=== PATIENT | male | born 1960 | race Caucasian/White ===

== ENCOUNTER 2025-08-30 12:13 | Outpatient (REF) | payer BC, SELFPAY ==
--- NOTE | ~2025-08-30 | US_ITS ---
Procedure: Endovascular ablation of the right greater saphenous vein with VenaSeal and STS HISTORY: Varicose veins INDICATIONS: Symptomatically varicose veins bilateral lower extremity. Symptoms include pain, swelling, and ulceration PROCEDURE/FINDINGS: Informed consent was obtained following a discussion of the risks and benefits of the procedure with the patient. The patient was placed supine on the ultrasound procedure table. Preliminary ultrasound demonstrates dilated refluxing right greater saphenous vein. A site was marked on the right medial leg . The right leg was sterilely prepped and draped. Following the administration of 1% lidocaine for local anesthesia, the greater saphenous vein was accessed with a 21-gauge micropuncture needle under direct ultrasound guidance. The needle was exchanged for the transitional dilator over a 0.018 guidewire. A 0.035 guidewire was then advanced to the saphenofemoral junction. The VenaSeal sheath was then inserted over the wire and positioned 10 cm from the saphenofemoral junction. VenaSeal glue was then delivered along the length of the greater saphenous vein while retracting the catheter with compression at the saphenofemoral junction to prevent glue from traveling forward. The delivery device was removed and hemostasis was achieved with manual compression. Next, under ultrasound guidance with permanent recordings with direct visualization into the vein lumen, the right greater saphenous vein was accessed utilizing a 23-gauge butterfly needle. The Tessari method was performed with a 4:1 ratio of air to STS to create foam. The solution was then administered through the access, a total of 8 mL of foam was used. The access was removed and hemostasis was immediately achieved. Postprocedure ultrasound demonstrates successful occlusion of the treated veins with widely patent and compressible saphenofemoral junction. Patient tolerated the procedure well without immediate complication. US/US Vein Inj Sclerosant Single IMPRESSION: Successful VenaSeal and STS ablation of the right greater saphenous vein. Follow-up ultrasound in 5-7 days The procedure was performed by Bryan Ascencio NP and supervised by Lambert Carbajal M.D. Electronically signed by: Lambert Carbajal MD 09/07/2025 05:52 PM EDT Workstation: [id number]
[2025-08-30] MEDS: Lidocaine HCl 1 % MPF 5 ML VIAL SUBCUT (15:14)
[2025-08-30] MEDS: Sodium Tetradecyl Sulfate 1% 2 ML VIAL INTRAVARIC (15:21)
== END 2025-08-30 12:14 | disposition home or self-care (01) ==
LOC: HO.US 12:13
PROVIDERS: PCP Family Medicine; Visit Provider Student in an Organized Health Care Education/Training Program
DX: I87.2 Venous insufficiency (chronic) (peripheral) (principal); I83.813 Varicose veins of bilateral lower extremities with pain
CPT/HCPCS: 36470; 36482; C1894; J2003

== ENCOUNTER → 2025-08-30 12:16 | Outpatient (BNV) | payer BC, SELFPAY | PROVIDERS: PCP Family Medicine | DX: I83.11 Varicose veins of right lower extremity with inflammation (principal) | CPT/HCPCS: 36470 ==

== ENCOUNTER 2025-09-06 12:37 | Outpatient (REF) | payer BC, SELFPAY ==
--- NOTE | ~2025-09-06 | US_ITS ---
Procedure: Endovascular ablation of the right small saphenous vein with VenaSeal HISTORY: Varicose veins INDICATIONS: Symptomatic varicose veins bilateral lower extremity. Symptoms include swelling and lower leg ulceration PROCEDURE/FINDINGS: Informed consent was obtained following a discussion of the risks and benefits of the procedure with the patient. The patient was placed prone on the ultrasound procedure table. Preliminary ultrasound demonstrates dilated refluxing right small saphenous vein. A site was marked on the right medial leg . The right leg was sterilely prepped and draped. Following the administration of 1% lidocaine for local anesthesia, the small saphenous vein was accessed with a 21-gauge micropuncture needle under direct ultrasound guidance. The needle was exchanged for the transitional dilator over a 0.018 guidewire. A 0.035 guidewire was then advanced to the saphenofemoral junction. The VenaSeal sheath was then inserted over the wire and positioned 10 cm from the saphenofemoral junction. VenaSeal glue was then delivered along the length of the vein while retracting the catheter with compression at the saphenofemoral junction to prevent glue from traveling forward. The delivery device was removed and hemostasis was achieved with manual compression. Postprocedure ultrasound demonstrates successful occlusion of the treated veins with widely patent and compressible saphenofemoral junction. Patient tolerated the procedure well without immediate complication. US/US venaseal vein closure IMPRESSION: Successful VenaSeal ablation of the right small saphenous vein. Follow-up ultrasound in 5-7 days The procedure was performed by Bryan Ascencio NP and supervised by Lambert Carbajal M.D. Electronically signed by: Lambert Carbajal MD 10/06/2025 11:52 AM [facility] Workstation: [id number]
--- NOTE | ~2025-09-06 | US_ITS ---
EXAMINATION: US TRIPLEX LOWER EXTREMITY, RIGHT CLINICAL INFORMATION: post VenaSeal COMPARISON: None available. TECHNIQUE: Color-flow triplex imaging with spectral analysis and compression Doppler were performed on the right lower extremity. FINDINGS: Respiratory variation, normal compression and augmented flow are noted throughout the right lower extremity. The visualized common femoral vein, superficial femoral vein, profunda femoral vein, popliteal vein and midcalf peroneal and posterior tibial venous segments show no evidence of deep venous thrombosis. Greater saphenous vein is patent at the saphenofemoral Junction for a length of 2.9 cm. Image showing the vessel is partially compressible was obtained. US/US venous duplex LE RT IMPRESSION: Great saphenous vein is occluded 2.9 cm from the saphenofemoral Junction. No evidence of deep venous thrombosis involving the right lower extremity. Electronically signed by: Dami Barrera MD 09/06/2025 01:31 PM EDT
== END 2025-09-06 12:38 | disposition home or self-care (01) ==
LOC: HO.US 12:37
PROVIDERS: PCP Family Medicine; Visit Provider Student in an Organized Health Care Education/Training Program
DX: I87.2 Venous insufficiency (chronic) (peripheral) (principal); I82.811 Embolism and thrombosis of superficial veins of right lower extremity; I83.018 Varicose veins of right lower extremity with ulcer other part of lower leg; L97.819 Non-pressure chronic ulcer of other part of right lower leg with unspecified severity; I83.891 Varicose veins of right lower extremity with other complications
CPT/HCPCS: 36482; 93971; C1894

== ENCOUNTER → 2025-09-06 12:55 | Outpatient (BNV) | payer BC, SELFPAY | PROVIDERS: PCP Family Medicine; Visit Provider Radiology Diagnostic Radiology | DX: I80.01 Phlebitis and thrombophlebitis of superficial vessels of right lower extremity (principal) | CPT/HCPCS: 93971 ==

== ENCOUNTER 2025-09-12 12:32 | Outpatient (REF) | payer BC, SELFPAY ==
--- NOTE | ~2025-09-12 | US_ITS ---
EXAMINATION: US TRIPLEX LOWER EXTREMITY, RIGHT CLINICAL INFORMATION: post SSV VenaSeal 09/06/25 and GSV 08/30/25 COMPARISON: None available. TECHNIQUE: Color-flow triplex imaging with spectral analysis and compression Doppler were performed on the right lower extremity. FINDINGS: There is central linear echogenic material within the popliteal vein. Color Doppler demonstrates blood flow around the filling defect. Respiratory variation, normal compression and augmented flow are noted throughout the right lower extremity. The visualized common femoral vein, superficial femoral vein, profunda femoral vein, and midcalf peroneal and posterior tibial venous segments show no evidence of deep venous thrombosis. Small saphenous vein is obscured distally by bandages. The proximal and midsection demonstrates a vessel with increased echogenicity and limited compressibility. Great saphenous vein is demonstrated near the saphenofemoral Junction with flow on color Doppler. There is also shown in the proximal thigh where it has an irregular undulating contour and contains hypoechoic material. US/US venous duplex LE RT IMPRESSION: Nonocclusive deep venous thrombosis is present in the popliteal vein. The US Tech notified the [employer]YM[employer] COACH who was present at the time. Small and great saphenous veins post VenaSeal. GSV flow demonstrated near the SFJ. Those 2 vessels were occluded otherwise. Electronically signed by: Dami Barrera MD 09/12/2025 03:02 PM EDT
== END 2025-09-12 12:33 | disposition home or self-care (01) ==
LOC: HO.US 12:32
PROVIDERS: PCP Family Medicine; Visit Provider Student in an Organized Health Care Education/Training Program
DX: I87.2 Venous insufficiency (chronic) (peripheral) (principal)
CPT/HCPCS: 93971

== ENCOUNTER → 2025-09-12 12:53 | Outpatient (BNV) | payer BC, SELFPAY | PROVIDERS: PCP Family Medicine; Visit Provider Radiology Diagnostic Radiology | DX: I82.431 Acute embolism and thrombosis of right popliteal vein (principal) | CPT/HCPCS: 93971 ==

== ENCOUNTER 2025-09-19 14:57 | Outpatient (REF) | payer BC, SELFPAY ==
--- NOTE | 2025-09-12 13:28 | PM.EVENT ---
Documented by User: Bryan Ascencio NP 09/12/25 13:34 Event Note Date of Service: 09/12/25 Event Note: Pt present for a right PASV ablation in the setting of right LE venous stasis ulceration. Pt also had f/u U/S to right SSV ablation with Venaseal performed a couple weeks ago. Pt found to have acute non occlusive DVT in the popliteal vein. Denies cardiorespiratory symptoms. No RLE complaints. 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 Physical exam: No additional swelling. Non-tender. No erythema, just previously noted staining. Plan: Continue anticoagulation. Seek medical attn for cardiorespiratory symptoms. F/U U/S in 10 days for DVT resolution. Told U/S tech to communicate findings with provider. Time Spent With Patient Time: Total time managing care of this patient today _20 minutes. Documented by User: Lambert Carbajal MD 09/12/25 15:12 Event Note Date of Service: 09/12/25
--- NOTE | ~2025-09-19 | US_ITS ---
EXAMINATION: US TRIPLEX LOWER EXTREMITY, RIGHT CLINICAL INFORMATION: History of right greater saphenous vein venaseal and sclerotherapy and right lesser saphenous vein venaseal procedure COMPARISON: Previous exams most recent September 12, 2025 TECHNIQUE: Color-flow triplex imaging with spectral analysis and compression Doppler were performed on the right lower extremity. FINDINGS: The visualized common femoral vein, superficial femoral vein, profunda femoral vein and saphenofemoral junction appear patent. There is echogenic material against the wall of the popliteal vein, partial recanalization and decreased compression similar to prior exam suggestive of chronic changes from DVT. No evidence of new or acute DVT. Calf veins are not visualized. There is no Mendoza's cyst. US/US venous duplex LE RT IMPRESSION: Chronic changes from DVT in the right popliteal vein similar to September 12, 2025 exam. No evidence of new or acute DVT. Electronically signed by: Swapna Rosales MD 09/19/2025 04:17 PM EDT
--- OUTSIDE RECORDS SUMMARY | 2025-09-19 20:07 | XMS_ITS | Data Portability ---
Author Organization [facility] Address [address] [place] [id number] Assessment No assessment recorded. Plan of Treatment Reminders Order Date Submit Date Provider Last Modified By Organization Details Last Modified Time Details Appointments [facility]NU[facility] 2025 11:00A Rowan Feliciano MD Not available Not available Not available Lab None recorded. Referral None recorded. Procedures None recorded. Surgeries None recorded. Imaging None recorded. Medication Orders None recorded. Patient TargetsNo targets recorded. Patient InstructionsNo instructions recorded. Reason for Referral None Reported. Results Created Date Observation Date Name Description Value Unit Range Abnormal Flag Note LastModifiedBy Organization Detail LastModifiedTime 02/06/20 24 02/06/2024 PROTH ROMBI N TIME INR prothrombin time 15.5 sec 9.5-12 .1 high Not Available [address] [place] [address], [address], 02/06/2024 12:54:31 02/06/20 24 02/06/2024 PROTH ROMBI N TIME INR INR 1.5 The INR is repor ela with all PT's, but it is to be used only with patie nts on couma din thera py for at least two weeks . Recom cruz d INR Value s: 2.0-3 .0 Prev or Rx DVT, AFIB, Strok e or Tissu e Valve 3.0-4 .5 M.I. Recur and decre ased morta l 2.5-3 .5 Mecha nical Valve . Not Available [address] [place] [address], [address], 02/06/2024 12:54:31 02/13/20 24 02/13/2024 PROTH ROMBI N TIME INR prothrombin time 19.7 sec 9.5-12 .1 high Not Available [address] [place] [address], [id number], 02/13/2024 12:54:18 02/13/20 24 02/13/2024 PROTH ROMBI N TIME INR INR 2.0 The INR is repor ela with all PT's, but it is to be used only with patie nts on couma din thera py for at least two weeks . Recom cruz d INR Value s: 2.0-3 .0 Prev or Rx DVT, AFIB, Strok e or Tissu e Valve 3.0-4 .5 M.I. Recur and decre ased morta l 2.5-3 .5 Mecha nical Valve . Not Available [address] [place] [address], [address], 02/13/2024 12:54:18 07/14/20 24 07/15/2024 WOUND CULTU RE wound culture CULT Commen ts Not Available [address] [place] [address], 96469, 07/15/2024 13:33:14 07/14/20 24 07/15/2024 WOUND CULTU RE wound culture 5 Young Growth , Reincu bated Not Available [address] [place] [address], 56914, 07/15/2024 13:33:14 07/14/20 24 07/15/2024 WOUND CULTU RE O:aersp Aeromo kinza specie s Not Available [address] [place] [address], 37329, 07/15/2024 13:33:14 07/14/20 24 07/15/2024 WOUND CULTU RE wound culture Isolat e Commen t: Not Available [address] [place] [address], 19306, 07/15/2024 13:33:14 07/14/20 24 07/15/2024 WOUND CULTU RE wound culture AEROMO KINZA HYDROP FLORA CAVIAE COMPLE X Not Available [address] [place] [address], 38778, 07/15/2024 13:33:14 07/14/20 24 07/15/2024 WOUND CULTU RE wound culture Isolat e Commen t: Not Available [address] [place] [address], 27119, 07/15/2024 13:33:14 07/14/20 24 07/15/2024 WOUND CULTU RE wound culture Identi fied by MALDI- TOF Not Available [address] [place] [address], 25114, 07/15/2024 13:33:14 07/14/20 24 07/15/2024 WOUND CULTU RE wound culture Quanti ty abnormal Not Available [address] [place] [address], 81427, 07/15/2024 13:33:14 07/14/20 24 07/15/2024 WOUND CULTU RE wound culture 2+ abnormal Not Available [address] [place] [address], 66229, 07/15/2024 13:33:14 07/14/20 24 07/15/2024 GRAM STAIN gram stain GS Gram Stain Result abnormal Not Available [address] [place] [address], 21415, 07/15/2024 13:43:58 07/14/20 24 07/15/2024 GRAM STAIN gram stain ` No Polymo rphonu clear Cells Not Available [address] [place] [address], 11806, 07/15/2024 13:43:58 07/14/20 24 07/15/2024 GRAM STAIN gram stain 2 A 2+ (Few) Gram Positi ve Cocci abnormal Not Available [address] [place] [address], 98148, 07/15/2024 13:43:58 07/14/20 24 07/15/2024 WOUND CULTU RE wound culture CULT Commen ts Not Available [address] [place] [address], 80116, 07/15/2024 13:43:58 07/14/20 24 07/15/2024 WOUND CULTU RE wound culture 5 Young Growth , Reincu bated Not Available [address] [place] [address], 15614, 07/15/2024 13:43:58 07/14/20 24 07/15/2024 WOUND CULTU RE O:aersp Aeromo kinza specie s Not Available [address] [place] [address], 27322, 07/15/2024 13:43:58 07/14/20 24 07/15/2024 WOUND CULTU RE wound culture Isolat e Commen t: Not Available [address] [place] [address], 11110, 07/15/2024 13:43:58 07/14/20 24 07/15/2024 WOUND CULTU RE wound culture AEROMO KINZA HYDROP FLORA CAVIAE COMPLE X Not Available [address] [place] [address], 43829, 07/15/2024 13:43:58 07/14/20 24 07/15/2024 WOUND CULTU RE wound culture Isolat e Commen t: Not Available [address] [place] [address], 17747, 07/15/2024 13:43:58 07/14/20 24 07/15/2024 WOUND CULTU RE wound culture Identi fied by MALDI- TOF Not Available [address] [place] [address], 85927, 07/15/2024 13:43:58 07/14/20 24 07/15/2024 WOUND CULTU RE wound culture Quanti ty abnormal Not Available [address] [place] [address], 28743, 07/15/2024 13:43:58 07/14/20 24 07/15/2024 WOUND CULTU RE wound culture 2+ abnormal Not Available [address] [place] [address], 19182, 07/15/2024 13:43:58 07/14/20 24 07/15/2024 GRAM STAIN gram stain GS Gram Stain Result abnormal Not Available [address] [place] [address], 06471, 07/16/2024 08:37:20 07/14/20 24 07/15/2024 GRAM STAIN gram stain ` No Polymo rphonu clear Cells Not Available [address] [place] [address], 16489, 07/16/2024 08:37:20 07/14/20 24 07/15/2024 GRAM STAIN gram stain 2 A 2+ (Few) Gram Positi ve Cocci abnormal Not Available [address] [place] [address], 03194, 07/16/2024 08:37:20 07/14/20 24 07/16/2024 WOUND CULTU RE wound culture CULT Commen ts Not Available [address] [place] [address], 85899, 07/16/2024 08:37:21 07/14/20 24 07/16/2024 WOUND CULTU RE wound culture 5 Young Growth , Reincu bated Not Available [address] [place] [address], 78331, 07/16/2024 08:37:21 07/14/20 24 07/16/2024 WOUND CULTU RE O:aersp Aeromo kinza specie s Not Available [address] [place] [address], 41431, 07/16/2024 08:37:21 07/14/20 24 07/16/2024 WOUND CULTU RE wound culture Isolat e Commen t: Not Available [address] [place] [address], 04301, 07/16/2024 08:37:21 07/14/20 24 07/16/2024 WOUND CULTU RE wound culture AEROMO KINZA HYDROP FLORA CAVIAE COMPLE X Not Available [address] [place] [address], 08093, 07/16/2024 08:37:21 07/14/20 24 07/16/2024 WOUND CULTU RE wound culture Isolat e Commen t: Not Available [address] [place] [address], 73316, 07/16/2024 08:37:21 07/14/20 24 07/16/2024 WOUND CULTU RE wound culture Identi fied by MALDI- TOF Not Available [address] [place] [address], 02983, 07/16/2024 08:37:21 07/14/20 24 07/16/2024 WOUND CULTU RE wound culture Quanti ty abnormal Not Available [address] [place] [address], 23274, 07/16/2024 08:37:21 07/14/20 24 07/16/2024 WOUND CULTU RE wound culture 2+ abnormal Not Available [address] [facility] [address] [place] [address], 275[address], 07/16/2024 08:37:21 07/14/20 24 07/16/2024 MICRO SCAN NEGAT MEG DRUG PANEL amikacin <=16 susceptib le Not Available [address] [place] [address], 58339, 07/16/2024 08:37:22 07/14/20 24 07/16/2024 MICRO SCAN NEGAT MEG DRUG PANEL amoxicillin/ clavulanate 16/8 intermedi ate Not Available [address] [place] [address], 97955, 07/16/2024 08:37:22 07/14/20 24 07/16/2024 MICRO SCAN NEGAT MEG DRUG PANEL ampicillin/s ulbactam >16/8 resistant Not Available [address] [facility] [address] [place] [address], 31149, 07/16/2024 08:37:22 07/14/20 24 07/16/2024 MICRO SCAN NEGAT MEG DRUG PANEL cefazolin 16 intermedi ate Not Available [address] [place] [address], 80802, 07/16/2024 08:37:22 07/14/20 24 07/16/2024 MICRO SCAN NEGAT MEG DRUG PANEL cefepime <=2 susceptib le Not Available [address] [place] [address], 99135, 07/16/2024 08:37:22 07/14/20 24 07/16/2024 MICRO SCAN NEGAT MEG DRUG PANEL cefotaxime <=2 susceptib le Not Available [address] [place] [address], 73794, 07/16/2024 08:37:22 07/14/20 24 07/16/2024 MICRO SCAN NEGAT MEG DRUG PANEL ceftazidime <=1 susceptib le Not Available [address] [place] [address], 26194, 07/16/2024 08:37:22 07/14/20 24 07/16/2024 MICRO SCAN NEGAT MEG DRUG PANEL ceftriaxone <=1 susceptib le Not Available [address] [place] [address], 55250, 07/16/2024 08:37:22 07/14/20 24 07/16/2024 MICRO SCAN NEGAT MEG DRUG PANEL ciprofloxaci n <=0.25 susceptib le Not Available [address] [place] [address], 30935, 07/16/2024 08:37:22 07/14/20 24 07/16/2024 MICRO SCAN NEGAT MEG DRUG PANEL gentamicin <=2 susceptib le Not Available [address] [place] [address], 38270, 07/16/2024 08:37:22 07/14/20 24 07/16/2024 MICRO SCAN NEGAT MEG DRUG PANEL tetracycline <=4 susceptib le Not Available [address] [place] [address], 06696, 07/16/2024 08:37:22 07/14/20 24 07/16/2024 MICRO SCAN NEGAT MEG DRUG PANEL trimethoprim /sulfamethox azole <=0.5/ 9.5 susceptib le Not Available [address] [place] [address], 72482, 07/16/2024 08:37:22 07/14/20 24 07/16/2024 MICRO SCAN NEGAT MEG DRUG PANEL piperacillin /tazobactam <=8 susceptib le Not Available [address] [place] [address], 35532, 07/16/2024 08:37:22 07/14/20 24 07/15/2024 GRAM STAIN gram stain GS Gram Stain Result abnormal Not Available [address] [place] [address], 37737, 07/16/2024 09:30:22 07/14/20 24 07/15/2024 GRAM STAIN gram stain ` No Polymo rphonu clear Cells Not Available [address] [place] [address], 49103, 07/16/2024 09:30:22 07/14/20 24 07/15/2024 GRAM STAIN gram stain 2 A 2+ (Few) Gram Positi ve Cocci abnormal Not Available [address] [place] [address], 69731, 07/16/2024 09:30:22 07/14/20 24 07/16/2024 WOUND CULTU RE wound culture CULT Commen ts Not Available [address] [place] [address], 14668, 07/16/2024 09:30:23 07/14/20 24 07/16/2024 WOUND CULTU RE wound culture 5 Young Growth , Reincu bated Not Available [address] [place] [address], 83673, 07/16/2024 09:30:23 07/14/20 24 07/16/2024 WOUND CULTU RE O:aersp Aeromo kinza specie s Not Available [address] [place] [address], 83645, 07/16/2024 09:30:23 07/14/20 24 07/16/2024 WOUND CULTU RE wound culture Isolat e Commen t: Not Available [address] [place] [address], 37575, 07/16/2024 09:30:23 07/14/20 24 07/16/2024 WOUND CULTU RE wound culture AEROMO KINZA HYDROP FLORA CAVIAE COMPLE X Not Available [address] [place] [address], 74003, 07/16/2024 09:30:23 07/14/20 24 07/16/2024 WOUND CULTU RE wound culture Isolat e Commen t: Not Available [address] [place] [address], 65690, 07/16/2024 09:30:23 07/14/20 24 07/16/2024 WOUND CULTU RE wound culture Identi fied by MALDI- TOF Not Available [address] [place] [address], 57323, 07/16/2024 09:30:23 07/14/20 24 07/16/2024 WOUND CULTU RE wound culture Quanti ty abnormal Not Available [address] [place] [address], 74311, 07/16/2024 09:30:23 07/14/20 24 07/16/2024 WOUND CULTU RE wound culture 2+ abnormal Not Available [address] [place] [address], 46277, 07/16/2024 09:30:23 07/14/20 24 07/16/2024 MICRO SCAN NEGAT MEG DRUG PANEL amikacin <=16 susceptib le Not Available [address] [place] [address], 79988, 07/16/2024 09:30:23 07/14/20 24 07/16/2024 MICRO SCAN NEGAT MEG DRUG PANEL amoxicillin/ clavulanate 16/8 intermedi ate Not Available [address] [place] [address], 89296, 07/16/2024 09:30:23 07/14/20 24 07/16/2024 MICRO SCAN NEGAT MEG DRUG PANEL ampicillin/s ulbactam >16/8 resistant Not Available [address], [address], 07/16/2024 09:30:23 07/14/20 24 07/16/2024 MICRO SCAN NEGAT MEG DRUG PANEL cefazolin 16 intermedi ate Not Available [address] [place] [address], 80595, 07/16/2024 09:30:23 07/14/20 24 07/16/2024 MICRO SCAN NEGAT MEG DRUG PANEL cefepime <=2 susceptib le Not Available [address] [place] [address], 53697, 07/16/2024 09:30:23 07/14/20 24 07/16/2024 MICRO SCAN NEGAT MEG DRUG PANEL cefotaxime <=2 susceptib le Not Available [address] [place] [address], 36814, 07/16/2024 09:30:23 07/14/20 24 07/16/2024 MICRO SCAN NEGAT MEG DRUG PANEL ceftazidime <=1 susceptib le Not Available [address] [place] [address], 04094, 07/16/2024 09:30:23 07/14/20 24 07/16/2024 MICRO SCAN NEGAT MEG DRUG PANEL ceftriaxone <=1 susceptib le Not Available [address] [place] [address], 82144, 07/16/2024 09:30:23 07/14/20 24 07/16/2024 MICRO SCAN NEGAT MEG DRUG PANEL ciprofloxaci n <=0.25 susceptib le Not Available [address] [place] [address], 96053, 07/16/2024 09:30:23 07/14/20 24 07/16/2024 MICRO SCAN NEGAT MEG DRUG PANEL gentamicin <=2 susceptib le Not Available [address] [place] [address], 31150, 07/16/2024 09:30:23 07/14/20 24 07/16/2024 MICRO SCAN NEGAT MEG DRUG PANEL tetracycline <=4 susceptib le Not Available [address] [place] [address], 91386, 07/16/2024 09:30:23 07/14/20 24 07/16/2024 MICRO SCAN NEGAT MEG DRUG PANEL trimethoprim /sulfamethox azole <=0.5/ 9.5 susceptib le Not Available [address] [place] [address], 69057, 07/16/2024 09:30:23 07/14/20 24 07/16/2024 MICRO SCAN NEGAT MEG DRUG PANEL piperacillin /tazobactam <=8 susceptib le Not Available [address] [place] [address], 90309, 07/16/2024 09:30:23 07/14/20 24 07/15/2024 GRAM STAIN gram stain GS Gram Stain Result abnormal Not Available [address] [place] [address], 25071, 07/16/2024 14:43:57 07/14/20 24 07/15/2024 GRAM STAIN gram stain ` No Polymo rphonu clear Cells Not Available [address] [place] [address], 32780, 07/16/2024 14:43:57 07/14/20 24 07/15/2024 GRAM STAIN gram stain 2 A 2+ (Few) Gram Positi ve Cocci abnormal Not Available [address] [place] [address], 24587, 07/16/2024 14:43:57 07/14/20 24 07/16/2024 WOUND CULTU RE O:aersp Aeromo kinza specie s Not Available [address] [place] [address], 52556, 07/16/2024 14:43:58 07/14/20 24 07/16/2024 WOUND CULTU RE wound culture Isolat e Commen t: Not Available [address] [place] [address], 47283, 07/16/2024 14:43:58 07/14/20 24 07/16/2024 WOUND CULTU RE wound culture AEROMO KINZA HYDROP FLORA CAVIAE COMPLE X Not Available [address] [place] [address], 16343, 07/16/2024 14:43:58 07/14/20 24 07/16/2024 WOUND CULTU RE wound culture Isolat e Commen t: Not Available [address] [place] [address], 56086, 07/16/2024 14:43:58 07/14/20 24 07/16/2024 WOUND CULTU RE wound culture Identi fied by MALDI- TOF Not Available [address] [place] [address], 35765, 07/16/2024 14:43:58 07/14/20 24 07/16/2024 WOUND CULTU RE wound culture Quanti ty abnormal Not Available [address] [place] [address], 49573, 07/16/2024 14:43:58 07/14/20 24 07/16/2024 WOUND CULTU RE wound culture 2+ abnormal Not Available [address] [place] [address], 50755, 07/16/2024 14:43:58 07/14/20 24 07/16/2024 WOUND CULTU RE O:entfac Entero coccus faecal is Not Available [address] [place] [address], 89176, 07/16/2024 14:43:58 07/14/20 24 07/16/2024 WOUND CULTU RE wound culture Isolat e Commen t: Not Available [address] [place] [address] [address] [place] [address], 90354, 07/16/2024 14:43:58 07/14/2007/16/2024 WOUND CULTU RE wound culture Identi fied by MALDI- TOF Not Available [address] [place] [address], 41173, 07/16/2024 14:43:58 07/14/20 24 07/16/2024 WOUND CULTU RE wound culture Quanti ty abnormal Not Available [address] [place] [address], 83849, 07/16/2024 14:43:58 07/14/2007/16/2024 WOUND CULTU RE wound culture 2+ abnormal Not Available [facility] [address] [place] [address], 18573, 07/16/2024 14:43:58 07/14/20 24 07/16/2024 MICRO SCAN NEGAT MEG DRUG PANEL amikacin <=16 susceptib le Not Available [address] [place] [address], 63734, 07/16/2024 14:43:58 07/14/20 24 07/16/2024 MICRO SCAN NEGAT MEG DRUG PANEL amoxicillin/ clavulanate 16/8 intermedi ate Not Available [address] [place] [address], 08767, 07/16/2024 14:43:58 07/14/20 24 07/16/2024 MICRO SCAN NEGAT MEG DRUG PANEL ampicillin/s ulbactam >16/8 resistant Not Available [facility] [address] [place] [address], 92929, 07/16/2024 14:43:58 07/14/20 24 07/16/2024 MICRO SCAN NEGAT MEG DRUG PANEL cefazolin 16 intermedi ate Not Available [address] [place] [address], 57832, 07/16/2024 14:43:58 07/14/20 24 07/16/2024 MICRO SCAN NEGAT MEG DRUG PANEL cefepime <=2 susceptib le Not Available [address] [place] [address], 86181, 07/16/2024 14:43:58 07/14/20 24 07/16/2024 MICRO SCAN NEGAT MEG DRUG PANEL cefotaxime <=2 susceptib le Not Available [address] [place] [address], 17995, 07/16/2024 14:43:58 07/14/2007/16/2024 MICRO SCAN NEGAT MEG DRUG PANEL ceftazidime <=1 susceptib le Not Available [address] [place] [address], 94635, 07/16/2024 14:43:58 07/14/2007/16/2024 MICRO SCAN NEGAT MEG DRUG PANEL ceftriaxone <=1 susceptib le Not Available [address] [place] [address], 38078, 07/16/2024 14:43:58 07/14/2007/16/2024 MICRO SCAN NEGAT MEG DRUG PANEL ciprofloxaci n <=0.25 susceptib le Not Available [address] [place] [address], 88829, 07/16/2024 14:43:58 07/14/2007/16/2024 MICRO SCAN NEGAT MEG DRUG PANEL gentamicin <=2 susceptib le Not Available [address] [place] [address], 80256, 07/16/2024 14:43:58 07/14/2007/16/2024 MICRO SCAN NEGAT MEG DRUG PANEL tetracycline <=4 susceptib le Not Available [address] [place] [address], 86945, 07/16/2024 14:43:58 07/14/2007/16/2024 MICRO SCAN NEGAT MEG DRUG PANEL trimethoprim /sulfamethox azole <=0.5/ 9.5 susceptib le Not Available [address] [place] [address], 68836, 07/16/2024 14:43:58 07/14/20 24 07/16/2024 MICRO SCAN NEGAT MEG DRUG PANEL piperacillin /tazobactam <=8 susceptib le Not Available [address] [place] [address], 64474, 07/16/2024 14:43:58 07/14/20 24 07/15/2024 GRAM STAIN gram stain GS Gram Stain Result abnormal Not Available [address] [place] [address], 88196, 07/17/2024 11:18:52 07/14/20 24 07/15/2024 GRAM STAIN gram stain ` No Polymo rphonu clear Cells Not Available [address] [place] [address], 32185, 07/17/2024 11:18:52 07/14/20 24 07/15/2024 GRAM STAIN gram stain 2 A 2+ (Few) Gram Positi ve Cocci abnormal Not Available [address] [place] [address], 78732, 07/17/2024 11:18:52 07/14/20 24 07/17/2024 WOUND CULTU RE wound culture CULT Commen ts Not Available [address] [place] [address], 96026, 07/17/2024 11:18:53 07/14/20 24 07/17/2024 WOUND CULTU RE wound culture 5 Young Growth , Reincu bated Not Available [address] [place] [address], 42086, 07/17/2024 11:18:53 07/14/20 24 07/17/2024 WOUND CULTU RE O:aersp Aeromo kinza specie s Not Available [address] [place] [address], 20039, 07/17/2024 11:18:53 07/14/20 24 07/17/2024 WOUND CULTU RE wound culture Isolat e Commen t: Not Available [address] [place] [address], 76351, 07/17/2024 11:18:53 07/14/20 24 07/17/2024 WOUND CULTU RE wound culture AEROMO KINZA HYDROP FLORA CAVIAE COMPLE X Not Available [address] [place] [address], 48814, 07/17/2024 11:18:53 07/14/20 24 07/17/2024 WOUND CULTU RE wound culture Isolat e Commen t: Not Available [address] [place] [address], 99770, 07/17/2024 11:18:53 07/14/20 24 07/17/2024 WOUND CULTU RE wound culture Identi fied by MALDI- TOF Not Available [address] [place] [address], 50446, 07/17/2024 11:18:53 07/14/20 24 07/17/2024 WOUND CULTU RE wound culture Quanti ty abnormal Not Available [address] [place] [address], 55719, 07/17/2024 11:18:53 07/14/20 24 07/17/2024 WOUND CULTU RE wound culture 2+ abnormal Not Available [facility] [address], 138[address], 07/17/2024 11:18:53 07/14/20 24 07/17/2024 WOUND CULTU RE O:entfac Entero coccus faecal is Not Available [address] [place] [address], 75110, 07/17/2024 11:18:53 07/14/20 24 07/17/2024 WOUND CULTU RE wound culture Isolat e Commen t: Not Available [address] [place] [address], 36065, 07/17/2024 11:18:53 07/14/20 24 07/17/2024 WOUND CULTU RE wound culture Identi fied by MALDI- TOF Not Available [address] [place] [address], 88318, 07/17/2024 11:18:53 07/14/20 24 07/17/2024 WOUND CULTU RE wound culture Quanti ty abnormal Not Available [address], 32383, 07/17/2024 11:18:53 07/14/20 24 07/17/2024 WOUND CULTU RE wound culture 2+ abnormal Not Available [address] [facility] [address] [place] [address], 74853, 07/17/2024 11:18:53 07/14/20 24 07/17/2024 MICRO SCAN NEGAT MEG DRUG PANEL amikacin <=16 susceptib le Not Available [address] [place] [address], 23544, 07/17/2024 11:18:53 07/14/20 24 07/17/2024 MICRO SCAN NEGAT MEG DRUG PANEL amoxicillin/ clavulanate 16/8 intermedi ate Not Available [address] [place] [address], 51452, 07/17/2024 11:18:53 07/14/20 24 07/17/2024 MICRO SCAN NEGAT MEG DRUG PANEL ampicillin/s ulbactam >16/8 resistant Not Available [address] [facility] [address] [place] [address], 70076, 07/17/2024 11:18:53 07/14/20 24 07/17/2024 MICRO SCAN NEGAT MEG DRUG PANEL cefazolin 16 intermedi ate Not Available [address] [place] [address], 44136, 07/17/2024 11:18:53 07/14/20 24 07/17/2024 MICRO SCAN NEGAT MEG DRUG PANEL cefepime <=2 susceptib le Not Available [address] [place] [address], 23786, 07/17/2024 11:18:53 07/14/20 24 07/17/2024 MICRO SCAN NEGAT MEG DRUG PANEL cefotaxime <=2 susceptib le Not Available [address] [place] [address], 61161, 07/17/2024 11:18:53 07/14/20 24 07/17/2024 MICRO SCAN NEGAT MEG DRUG PANEL ceftazidime <=1 susceptib le Not Available [address] [place] [address], 87217, 07/17/2024 11:18:53 07/14/20 24 07/17/2024 MICRO SCAN NEGAT MEG DRUG PANEL ceftriaxone <=1 susceptib le Not Available [address] [place] [address], 53727, 07/17/2024 11:18:53 07/14/20 24 07/17/2024 MICRO SCAN NEGAT MEG DRUG PANEL ciprofloxaci n <=0.25 susceptib le Not Available [address] [place] [address], 18751, 07/17/2024 11:18:53 07/14/20 24 07/17/2024 MICRO SCAN NEGAT MEG DRUG PANEL gentamicin <=2 susceptib le Not Available [address] [place] [address], 83308, 07/17/2024 11:18:53 07/14/20 24 07/17/2024 MICRO SCAN NEGAT MEG DRUG PANEL tetracycline <=4 susceptib le Not Available [address] [place] [address], [id number], 07/17/2024 11:18:53 07/14/20 24 07/17/2024 MICRO SCAN NEGAT MEG DRUG PANEL trimethoprim /sulfamethox azole <=0.5/ 9.5 susceptib le Not Available [address] [place] [address], [id number], 07/17/2024 11:18:53 07/14/20 24 07/17/2024 MICRO SCAN NEGAT MEG DRUG PANEL piperacillin /tazobactam <=8 susceptib le Not Available [address] [place] [address], [id number], 07/17/2024 11:18:53 07/14/20 24 07/17/2024 MICRO SCAN POSIT MEG DRUG PANEL ampicillin <=2 susceptib le Not Available [address] [place] [address], [id number], 07/17/2024 11:18:54 07/14/20 24 07/17/2024 MICRO SCAN POSIT MEG DRUG PANEL ciprofloxaci n <=1 susceptib le Not Available [address] [place] [address], [id number], 07/17/2024 11:18:54 07/14/20 24 07/17/2024 MICRO SCAN POSIT MEG DRUG PANEL erythromycin >4 resistant Not Available [address] [place] [address], [id number], 07/17/2024 11:18:54 07/14/20 24 07/17/2024 MICRO SCAN POSIT MEG DRUG PANEL penicillin 2 susceptib le Not Available [address] [place] [address], [id number], 07/17/2024 11:18:54 07/14/20 24 07/17/2024 MICRO SCAN POSIT MEG DRUG PANEL tetracycline >8 resistant Not Available [address] [place] [address], [id number], 07/17/2024 11:18:54 07/14/20 24 07/17/2024 MICRO SCAN POSIT MEG DRUG PANEL vancomycin 1 susceptib le Not Available [address] [place] [address], [id number], 07/17/2024 11:18:54 07/14/20 24 07/15/2024 GRAM STAIN gram stain GS Gram Stain Result abnormal Not Available [address] [place] [address], [id number], 07/17/2024 15:01:04 08/15/07/15/2024 GRAM STAIN gram stain ` No Polymo rphonu clear Cells Not Available [address] [place] [address], [id number], 07/17/2024 15:01:04 07/14/20 24 07/15/2024 GRAM STAIN gram stain 2 A 2+ (Few) Gram Positi ve Cocci abnormal Not Available [address] [place] [address], [id number], 07/17/2024 15:01:04 07/14/20 24 07/17/2024 WOUND CULTU RE O:aersp Aeromo kinza specie s Not Available [address] [place] [address], 07269, 07/17/2024 15:01:04 07/14/20 24 07/17/2024 WOUND CULTU RE wound culture Isolat e Commen t: Not Available [address] [place] [address], [id number], 07/17/2024 15:01:04 07/14/20 24 07/17/2024 WOUND CULTU RE wound culture AEROMO KINZA HYDROP FLORA CAVIAE COMPLE X Not Available [address] [place] [address], 29592, 07/17/2024 15:01:04 07/14/20 24 07/17/2024 WOUND CULTU RE wound culture Isolat e Commen t: Not Available [address] [place] [address], 18018, 07/17/2024 15:01:04 07/14/20 24 07/17/2024 WOUND CULTU RE wound culture Identi fied by MALDI- TOF Not Available [address] [place] [address], 49886, 07/17/2024 15:01:04 07/14/20 24 07/17/2024 WOUND CULTU RE wound culture Quanti ty abnormal Not Available [address] [place] [address], 42739, 07/17/2024 15:01:04 07/14/20 24 07/17/2024 WOUND CULTU RE wound culture 2+ abnormal Not Available [address] [facility] [address] [place] [address], 82757, 07/17/2024 15:01:04 07/14/20 24 07/17/2024 WOUND CULTU RE O:entfac Entero coccus faecal is Not Available [address] [place] [address], 24811, 07/17/2024 15:01:04 07/14/20 24 07/17/2024 WOUND CULTU RE wound culture Isolat e Commen t: Not Available [address] [place] [address], 13925, 07/17/2024 15:01:04 07/14/20 24 07/17/2024 WOUND CULTU RE wound culture Identi fied by MALDI- TOF Not Available [address] [place] [address], 35820, 07/17/2024 15:01:04 07/14/20 24 07/17/2024 WOUND CULTU RE wound culture Quanti ty abnormal Not Available [address] [place] [address], [id number], 07/17/2024 15:01:04 07/14/20 24 07/17/2024 WOUND CULTU RE wound culture 2+ abnormal Not Available [address], 27700, 07/17/2024 15:01:04 07/14/20 24 07/17/2024 WOUND CULTU RE O:dipth Diphth eroids Not Available [address] [place] [address], 92580, 07/17/2024 15:01:04 07/14/20 24 07/17/2024 WOUND CULTU RE wound culture Quanti ty abnormal Not Available [address] [place] [address], 52797, 07/17/2024 15:01:04 07/14/20 24 07/17/2024 WOUND CULTU RE wound culture 1+ abnormal Not Available [address] [facility] [address] [place] [address], 54113, 07/17/2024 15:01:04 07/14/20 24 07/17/2024 MICRO SCAN NEGAT MEG DRUG PANEL amikacin <=16 susceptib le Not Available [address] [place] [address], 61160, 07/17/2024 15:01:05 07/14/20 24 07/17/2024 MICRO SCAN NEGAT MEG DRUG PANEL amoxicillin/ clavulanate 16/8 intermedi ate Not Available [address] [place] [address], 42352, 07/17/2024 15:01:05 07/14/20 24 07/17/2024 MICRO SCAN NEGAT MEG DRUG PANEL ampicillin/s ulbactam >16/8 resistant Not Available [address] [facility] [address] [place] [address], 75557, 07/17/2024 15:01:05 07/14/20 24 07/17/2024 MICRO SCAN NEGAT MEG DRUG PANEL cefazolin 16 intermedi ate Not Available [address] [place] [address], 79935, 07/17/2024 15:01:05 07/14/20 24 07/17/2024 MICRO SCAN NEGAT MEG DRUG PANEL cefepime <=2 susceptib le Not Available [address] [place] [address], 57577, 07/17/2024 15:01:05 07/14/20 24 07/17/2024 MICRO SCAN NEGAT MEG DRUG PANEL cefotaxime <=2 susceptib le Not Available [address] [place] [address], 77210, 07/17/2024 15:01:05 07/14/20 24 07/17/2024 MICRO SCAN NEGAT MEG DRUG PANEL ceftazidime <=1 susceptib le Not Available [address] [place] [address], [id number], 07/17/2024 15:01:05 07/14/20 24 07/17/2024 MICRO SCAN NEGAT MEG DRUG PANEL ceftriaxone <=1 susceptib le Not Available [address] [place] [address], 34823, 07/17/2024 15:01:05 07/14/20 24 07/17/2024 MICRO SCAN NEGAT MEG DRUG PANEL ciprofloxaci n <=0.25 susceptib le Not Available [address] [place] [address], 56723, 07/17/2024 15:01:05 07/14/20 24 07/17/2024 MICRO SCAN NEGAT MEG DRUG PANEL gentamicin <=2 susceptib le Not Available [address] [place] [address], 96297, 07/17/2024 15:01:05 07/14/20 24 07/17/2024 MICRO SCAN NEGAT MEG DRUG PANEL tetracycline <=4 susceptib le Not Available [address] [place] [address], 78973, 07/17/2024 15:01:05 07/14/20 24 07/17/2024 MICRO SCAN NEGAT MEG DRUG PANEL trimethoprim /sulfamethox azole <=0.5/ 9.5 susceptib le Not Available [address] [place] [address], 72910, 07/17/2024 15:01:05 07/14/20 24 07/17/2024 MICRO SCAN NEGAT MEG DRUG PANEL piperacillin /tazobactam <=8 susceptib le Not Available [address] [place] [address], 83744, 07/17/2024 15:01:05 07/14/20 24 07/17/2024 MICRO SCAN POSIT MEG DRUG PANEL ampicillin <=2 susceptib le Not Available [address] [place] [address], 48508, 07/17/2024 15:01:05 07/14/20 24 07/17/2024 MICRO SCAN POSIT MEG DRUG PANEL ciprofloxaci n <=1 susceptib le Not Available [address] [place] [address], 76839, 07/17/2024 15:01:05 07/14/20 24 07/17/2024 MICRO SCAN POSIT MEG DRUG PANEL erythromycin >4 resistant Not Available [address] [place] [address], 21593, 07/17/2024 15:01:05 07/14/20 24 07/17/2024 MICRO SCAN POSIT MEG DRUG PANEL penicillin 2 susceptib le Not Available [address] [place] [address], 05809, 07/17/2024 15:01:05 07/14/20 24 07/17/2024 MICRO SCAN POSIT MEG DRUG PANEL tetracycline >8 resistant Not Available [address] [place] [address], 63666, 07/17/2024 15:01:05 07/14/20 24 07/17/2024 MICRO SCAN POSIT MEG DRUG PANEL vancomycin 1 susceptib le Not Available [address] [place] [address], 95862, 07/17/2024 15:01:05 08/15/20 24 08/15/2024 COMPL ETE BLOOD COUNT W/ DIFF white blood count 9.2 K/mm3 4.0-11 .0 normal Not Available [address] [place] [address], 35325, 08/15/2024 14:50:03 08/15/20 24 08/15/2024 COMPL ETE BLOOD COUNT W/ DIFF red blood count 4.78 M/uL 4.20-5 .80 normal Not Available [address] [place] [address], 83015, 08/15/2024 14:50:03 08/15/20 24 08/15/2024 COMPL ETE BLOOD COUNT W/ DIFF hemoglobin 13.2 gm/dL 12.5-1 7.0 normal Not Available [address] [place] [address], 35076, 08/15/2024 14:50:03 08/15/20 24 08/15/2024 COMPL ETE BLOOD COUNT W/ DIFF hematocrit 43.3 % 37.0-5 0.0 normal Not Available [address] [place] [address], 63881, 08/15/2024 14:50:03 08/15/20 24 08/15/2024 COMPL ETE BLOOD COUNT W/ DIFF mean corpuscular volume 90.6 fL 80.0-1 00.0 normal Not Available [address] [place] [address], 04825, 08/15/2024 14:50:03 08/15/20 24 08/15/2024 COMPL ETE BLOOD COUNT W/ DIFF MCHC 30.5 % 32-37 low Not Available [address] [place] [address], 63292, 08/15/2024 14:50:03 08/15/20 24 08/15/2024 COMPL ETE BLOOD COUNT W/ DIFF red cell distribution width 14.9 % 11.5-1 6.0 normal Not Available [address] [place] [address], 58602, 08/15/2024 14:50:03 08/15/20 24 08/15/2024 COMPL ETE BLOOD COUNT W/ DIFF platelet count 146 K/uL 140-40 0 normal Not Available [address] [place] [address], 68697, 08/15/2024 14:50:03 08/15/20 24 08/15/2024 COMPL ETE BLOOD COUNT W/ DIFF mean platelet volume 11.2 fL 8.6-12 .5 normal Not Available [address] [place] [address], 25032, 08/15/2024 14:50:03 08/15/20 24 08/15/2024 COMPL ETE BLOOD COUNT W/ DIFF %nucleated RBC auto 0.0 % 0.0-0. 7 normal Not Available [address] [facility] [address] [place] [address], 74560, 08/15/2024 14:50:03 08/15/20 24 08/15/2024 COMPL ETE BLOOD COUNT W/ DIFF %neutrophils auto 78.8 % Not Available [address] [facility] [address] [place] [address], 27779, 08/15/2024 14:50:03 08/15/20 24 08/15/2024 COMPL ETE BLOOD COUNT W/ DIFF %lymphocytes auto 11.7 % Not Available [address] [facility] [address] [place] [address], 76625, 08/15/2024 14:50:03 08/15/20 24 08/15/2024 COMPL ETE BLOOD COUNT W/ DIFF %monocytes auto 6.3 % Not Available [address] [facility] [address] [place] [address], 74179, 08/15/2024 14:50:03 08/15/20 24 08/15/2024 COMPL ETE BLOOD COUNT W/ DIFF %eosinophils auto 2.4 % Not Available [address] [facility] [address] [place] [address], 07952, 08/15/2024 14:50:03 08/15/20 24 08/15/2024 COMPL ETE BLOOD COUNT W/ DIFF %basophils auto 0.3 % Not Available [address] [facility] [address] [place] [address], 11352, 08/15/2024 14:50:03 08/15/20 24 08/15/2024 COMPL ETE BLOOD COUNT W/ DIFF %immature granulocytes auto 0.5 % Not Available [address] [facility] [address] [place] [address], 18614, 08/15/2024 14:50:03 08/15/20 24 08/15/2024 COMPL ETE BLOOD COUNT W/ DIFF #neutrophils auto 7.26 K/uL 1.50-7 .50 normal Not Available [address] [place] [address] [facility] [address] [place] [address], 11335, 08/15/2024 14:50:03 08/15/20 24 08/15/2024 COMPL ETE BLOOD COUNT W/ DIFF #lymphocytes auto 1.08 K/uL 1.00-4 .50 normal Not Available [address] [place] [address], 40390, 08/15/2024 14:50:03 08/15/20 24 08/15/2024 COMPL ETE BLOOD COUNT W/ DIFF #monocytes auto 0.58 K/uL 0.00-0 .80 normal Not Available [address] [place] [address], 05444, 08/15/2024 14:50:03 08/15/20 24 08/15/2024 COMPL ETE BLOOD COUNT W/ DIFF #eosinophils auto 0.22 K/uL 0.00-0 .40 normal Not Available [address] [place] [address], 77714, 08/15/2024 14:50:03 08/15/20 24 08/15/2024 COMPL ETE BLOOD COUNT W/ DIFF #basophils auto 0.03 K/uL 0.00-0 .20 normal Not Available [address] [place] [address], 18514, 08/15/2024 14:50:03 08/15/20 24 08/15/2024 COMPL ETE BLOOD COUNT W/ DIFF #immature granulocytes auto 0.05 K/uL 0.00-0 .10 normal Not Available [address] [place] [address], 59418, 08/15/2024 14:50:03 08/15/20 24 08/15/2024 COMPR EHENS MEG METAB OLIC PANEL sodium 140 mEq/L 133-14 5 normal Not Available [address] [place] [address], 53151, 08/15/2024 14:50:05 08/15/20 24 08/15/2024 COMPR EHENS MEG METAB OLIC PANEL potassium 4.7 mEq/L 3.5-5. 1 normal Not Available [address] [place] [address] [facility] [address] [place] [address], 67479, 08/15/2024 14:50:05 08/15/20 24 08/15/2024 COMPR EHENS MEG METAB OLIC PANEL chloride 105 mEq/L 98-112 normal Pleas e note new refer ence range . Not Available [address] [place] [address] [facility] [address] [place] [address], 89158, 08/15/2024 14:50:05 08/15/20 24 08/15/2024 COMPR EHENS MEG METAB OLIC PANEL carbon dioxide 27 mEq/L 22-31 normal Not Available [address] [facility] [address] [place] [address], 94685, 08/15/2024 14:50:05 08/15/20 24 08/15/2024 COMPR EHENS MEG METAB OLIC PANEL anion gap 8 mEq/L 5-15 normal Not Available [address] [place] [address] [facility] [address] [place] [address], 12120, 08/15/2024 14:50:05 08/15/20 24 08/15/2024 COMPR EHENS MEG METAB OLIC PANEL blood urea nitrogen (BUN) 19 mg/dL 8-26 normal Not Available [address] [place] [address] [facility] [address] [place] [address], 10332, 08/15/2024 14:50:05 08/15/20 24 08/15/2024 COMPR EHENS MEG METAB OLIC PANEL creatinine 1.31 mg/dL 0.70-1 .18 high Not Available [address] [place] [address], 93897, 08/15/2024 14:50:05 08/15/20 24 08/15/2024 COMPR EHENS MEG METAB OLIC PANEL est.glomerul ar filtration rate > 60 Units : mL/mi n/1.7 3 m2 Estim ated GFR (eGFR ) cyndi sofia not be used for patie nts with acute kidne y injur y or ESRD (yosi sofia be at stead y state and stabl e to use). eGFR is calcu lated using the Natio nal Kidne y Found ation 2020 CKD-E PI creat inine equat ion, which is now the recom cruz d equat ion to estim ate GFR based on creat inine per priyanka t KDIGO (Kidn ey Disea se Impro ving Globa l Outco mes) Guide lines . KDIGO recom mends CKD now be class ified based on cause , GFR categ ory, and album inuri a categ ory. GFR categ ories will not be repor ela by the lab for G1 or G2 (eGFR >60). GFR categ ories shoul d be assig ruchi as: eGFR 45-59 = G3a (mild ly to moder ately decre ased) , eGFR 30-44 = G3b (mode ratel y to sever ethel decre ased) , eGFR 15-29 G4 (adam rely decre ased) , eGFR< 15 G5 (kidn ey failu re). Not Available [address] [place] [address], 13250, 08/15/2024 14:50:05 08/15/2008/15/2024 COMPR EHENS MEG METAB OLIC PANEL glucose 167 mg/dL 70-100 high Fasti ng Refer ence Inter sam: 70-10 0mg/d L Non-f astin g Refer ence Inter sam: 70-14 0mg/d L Not Available [address] [place] [address], 09008, 08/15/2024 14:50:05 08/15/20 24 08/15/2024 COMPR EHENS MEG METAB OLIC PANEL calcium 8.8 mg/dL 8.4-10 .4 normal Not Available [address] [place] [address], 46980, 08/15/2024 14:50:05 08/15/20 24 08/15/2024 COMPR EHENS MEG METAB OLIC PANEL bilirubin total 0.5 mg/dL 0.2-1. 2 normal Not Available [address] [place] [address], 98150, 08/15/2024 14:50:05 08/15/20 24 08/15/2024 COMPR EHENS MEG METAB OLIC PANEL aspartate amino transferase 13 IU/L 5-34 normal Not Available [address] [place] [address], 37427, 08/15/2024 14:50:05 08/15/20 24 08/15/2024 COMPR EHENS MEG METAB OLIC PANEL alanine aminotransfe rase 12 IU/L 0-55 normal Not Available [address] [place] [address], 77644, 08/15/2024 14:50:05 08/15/20 24 08/15/2024 COMPR EHENS MEG METAB OLIC PANEL total protein 7.4 g/dL 5.8-8. 1 normal Not Available [address] [place] [address], 42330, 08/15/2024 14:50:05 08/15/20 24 08/15/2024 COMPR EHENS MEG METAB OLIC PANEL albumin 3.0 g/dL 2.8-5. 4 normal Not Available [address] [place] [address], 39904, 08/15/2024 14:50:05 08/15/20 24 08/15/2024 COMPR EHENS MEG METAB OLIC PANEL alkaline phosphatase 68 IU/L 40-150 normal Not Available [address] [place] [address], 52832, 08/15/2024 14:50:05 08/15/20 24 08/15/2024 LIPID PANEL triglyceride s 94 mg/dL normal Haydee l <=150 Haydee l 150-1 99 Borde rline High 200-4 99 High >=500 Very High Not Available [address] [place] [address], 58564, 08/15/2024 14:50:06 08/15/20 24 08/15/2024 LIPID PANEL cholesterol 154 mg/dL normal Maureen able <200 Maureen able 200-2 39 Borde rline High >=240 High Not Available [address] [place] [address], 40458, 08/15/2024 14:50:06 08/15/20 24 08/15/2024 LIPID PANEL LDL cholesterol calculated 100 mg/dL normal Near Optim al <100 Optim al 100-1 29 Near optim al 130-1 59 Borde rline High 160-1 89 High >=190 Very High Not Available [address] [place] [address], 91970, 08/15/2024 14:50:06 08/15/20 24 08/15/2024 LIPID PANEL HDL cholesterol 35 mg/dL low <40 Low >=60 Optim al Not Available [address] [place] [address], 50879, 08/15/2024 14:50:06 08/15/20 24 08/21/2024 LUPUS ANTIC OAGUL ANT EVAL W/RFL PTT-la (lupus sensitive) 43 sec <=40 abnormal Not Available [address] [place] [address], 83575, 08/21/2024 12:29:38 08/15/20 24 08/21/2024 LUPUS ANTIC OAGUL ANT EVAL W/RFL hexagonal phase confirmation Weak Positi ve negati ve abnormal Not Available [address] [place] [address], 66507, 08/21/2024 12:29:38 08/15/20 24 08/21/2024 LUPUS ANTIC OAGUL ANT EVAL W/RFL la thrombin clotting time 20 sec 13-19 abnormal THIS TEST WAS PERFO RMED AT: [facility] [address] [place], [place] FLORINDA ISABEL MD,P HD Not Available [address] [place] [address], 73305, 08/21/2024 12:29:38 08/15/20 24 08/21/2024 LUPUS ANTIC OAGUL ANT EVAL W/RFL dilute segun's viper venom 72 sec <=45 abnormal Not Available [address] [place] [address] [place], 9[address]36, 08/21/2024 12:29:38 08/15/2008/21/2024 LUPUS ANTIC OAGUL ANT EVAL W/RFL drvvt confirmation Negati ve negati ve THIS TEST WAS PERFO RMED AT: [facility] [place] [address] [facility] [place], [place] PATRI LACIE ISABEL MD,P HD Not Available [address] [place] [address] [facility] [place] [address], 25965, 08/21/2024 12:29:38 08/15/2008/21/2024 LUPUS ANTIC OAGUL ANT EVAL W/RFL lupus anticoagulan t see note abnormal A Lupus Antic oagul ant is detec ela since one of the two confi rmato ry tests is posit meg. Lupus Anti- coagu lants (LA) may be assoc iated with throm botic event s, recur rent abort ion, or may be asymp tomat ic. A bleed ing histo ry requi res other coagu lopat hies be exclu ded. Since LA may be trans ient, inter natio nal conse nsus guide lines sugge st waiti ng at least 12 weeks befor e retes ting to confi rm antib lionel persi stenc e. (J Throm b Haemo st 2006: 4; 295). NOTE: Direc t oral antic oagul ant thera py may cause false posit meg resul ts. Refer ence Range : Not Detec ela For addit ional infor rossi weaver e refer to http: //jerome shearer.que stdia gnost ics.c om/fa q/FAQ 01v2 (This link is being provi ded for infor ana [place]/ educa eduin l purpo ses only. ) This inter preta tion is based on the follo wing test resul ts. Not Available [address] [place] [address] [facility] [address] [place] [address], [id number], 08/21/2024 12:29:38 09/16/20 24 09/22/2024 LUPUS ANTIC OAGUL ANT EVAL W/RFL PTT-la (lupus sensitive) 31 sec <=40 Not Available [address] [place] [address] [facility] [address] [place] [address], 57422, 09/22/2024 23:44:29 09/16/20 24 09/22/2024 LUPUS ANTIC OAGUL ANT EVAL W/RFL dilute segun's viper venom 45 sec <=45 THIS TEST WAS PERFO RMED AT: [facility] [id number] [place] [address] PATRI LACIE ISABEL MD,P HD Not Available [address] [place] [address] [facility] [address] [place] [address], 52339, 09/22/2024 23:44:29 09/16/2009/22/2024 LUPUS ANTIC OAGUL ANT EVAL W/RFL lupus anticoagulan t see note A Lupus Antic oagul ant is not detec ela. Refer ence Range : Not Detec ela For addit ional infor rossi weaver e refer to http: //jerome duggan stdia gnost ics.c om/fa q/FAQ 01v2 (This link is being provi ded for infor ana [place]/ educsusana denny l purpo ses only. ) This inter preta tion is based on the follo wing test resul ts. Not Available [address] [place] [address] [facility] [address] [place] [address], 41113, 09/22/2024 23:44:29 11/18/20 24 11/18/2024 COMPR EHENS MEG METAB OLIC PANEL sodium 140 mEq/L 133-14 5 normal Not Available [address] [place] [address] [facility] [address] [place] [address], 49232, 11/18/2024 14:14:07 11/18/20 24 11/18/2024 COMPR EHENS MEG METAB OLIC PANEL potassium 4.4 mEq/L 3.5-5. 1 normal Not Available [address] [place] [address] [facility] [address] [place] [address], 27330, 11/18/2024 14:14:07 11/18/20 24 11/18/2024 COMPR EHENS MEG METAB OLIC PANEL chloride 105 mEq/L 98-112 normal Not Available [address] [place] [address] [facility] [address] [place] [address], 20526, 11/18/2024 14:14:07 11/18/20 24 11/18/2024 COMPR EHENS MEG METAB OLIC PANEL carbon dioxide 26 mEq/L 22-31 normal Not Available [facility] [address] [place] [address], 80275, 11/18/2024 14:14:07 11/18/20 24 11/18/2024 COMPR EHENS MEG METAB OLIC PANEL anion gap 9 mEq/L 5-15 normal Not Available [address] [facility] [address] [place] [address], 03731, 11/18/2024 14:14:07 11/18/20 24 11/18/2024 COMPR EHENS MEG METAB OLIC PANEL blood urea nitrogen (BUN) 14 mg/dL 8-26 normal Not Available [address] [facility] [address] [place] [address], 66604, 11/18/2024 14:14:07 11/18/20 24 11/18/2024 COMPR EHENS MEG METAB OLIC PANEL creatinine 1.06 mg/dL 0.70-1 .18 normal Not Available [address] [place] [address], 78259, 11/18/2024 14:14:07 11/18/20 24 11/18/2024 COMPR EHENS MEG METAB OLIC PANEL est.glomerul ar filtration rate > 60 Units : mL/mi n/1.7 3 m2 Estim ated GFR (eGFR ) anaisul d not be used for patie nts with acute kidne y injur y or ESRD (crea elba e anaisul d be at stead y state and stabl e to use). eGFR is calcu lated using the Natio nal Kidne y Found ation 2020 CKD-E PI creat inine equat ion, which is now the recom cruz d equat ion to estim ate GFR based on creat inine per lates t KDIGO (Kidn ey Disea se Impro ving Globa l Outco mes) Guide lines . KDIGO recom mends CKD now be class ified based on cause , GFR categ ory, and album inuri a categ ory. GFR categ ories will not be repor ela by the lab for G1 or G2 (eGFR >60). GFR categ ories shoul d be assig ruchi as: eGFR 45-59 = G3a (mild ly to moder ately decre ased) , eGFR 30-44 = G3b (mode ratel y to sever ethel decre ased) , eGFR 15-29 G4 (adam rely decre ased) , eGFR< 15 G5 (kidn ey failu re). Not Available [address] [place] [address], 59049, 11/18/2024 14:14:07 11/18/20 24 11/18/2024 COMPR EHENS MEG METAB OLIC PANEL glucose 118 mg/dL 70-100 high Fasti ng Refer ence Inter sam: 70-10 0mg/d L Non-f astin g Refer ence Inter sam: 70-14 0mg/d L Not Available [address] [place] [address], 87380, 11/18/2024 14:14:07 11/18/20 24 11/18/2024 COMPR EHENS MEG METAB OLIC PANEL calcium 8.8 mg/dL 8.4-10 .4 normal Not Available [address] [place] [address], 76615, 11/18/2024 14:14:07 11/18/20 24 11/18/2024 COMPR EHENS MEG METAB OLIC PANEL bilirubin total 0.4 mg/dL 0.3-1. 2 normal Pleas e note new refer ence range . Not Available [address] [place] [address], 79410, 11/18/2024 14:14:07 11/18/20 24 11/18/2024 COMPR EHENS MEG METAB OLIC PANEL aspartate amino transferase 19 IU/L 11-34 normal Pleas e note new refer ence range . Not Available [address] [place] [address] [place] [address], 98666, 11/18/2024 14:14:07 11/18/20 24 11/18/2024 COMPR EHENS MEG METAB OLIC PANEL alanine aminotransfe rase 15 IU/L <45 Pleas e note new refer ence range . Not Available [address] [place] [address], 37403, 11/18/2024 14:14:07 11/18/20 24 11/18/2024 COMPR EHENS MEG METAB OLIC PANEL total protein 6.9 g/dL 5.8-8. 1 normal Not Available [address] [place] [address], 17761, 11/18/2024 14:14:07 11/18/20 24 11/18/2024 COMPR EHENS MEG METAB OLIC PANEL albumin 3.2 g/dL 2.5-5. 0 normal Pleas e note new refer ence range . Not Available [address] [place] [address], 13931, 11/18/2024 14:14:07 11/18/20 24 11/18/2024 COMPR EHENS MEG METAB OLIC PANEL alkaline phosphatase 77 IU/L 40-150 normal Not Available [address] [place] [address], 97598, 11/18/2024 14:14:07 11/18/20 24 11/18/2024 HEMOG LOBIN A1C hemoglobin A1C 6.2 % 4.4-6. 3 normal Metho dolog y jordan e to enzym atic HbA1c metho d. Refer ence range s and resul ts sania rable to previ ous metho d. Not Available [address] [place] [address], [id number], 11/18/2024 14:21:49 11/18/20 24 11/18/2024 PSA SCREE N PSA screen 0.97 NG/mL 0-4 normal This test was perfo rmed using the Beckm an Coult er Acces s Chemi lumin escen t metho d. Value s obtai ruchi from diffe rent assay metho ds canno t be used inter jordan eably . Level s, regar dless of value , shoul d not be inter prete d as absol marshall evide nce of the prese nce or absen ce of disea se. This test shoul d be inter prete d withi n the total clini shar prese ntati on of the patie nt. Not Available [address] [place], [address], 11/18/2024 15:10:52 06/23/20 25 06/22/2025 venou s mappi ng, lower extre mity, limit ed No observ ation record ed. [address] [facility] [address] [place], [address], 06/27/2025 17:22:56 09/06/2009/06/2025 US, jennifer x, herminio s, lower extre mity, unila teral No observ ation record ed. [address], [address], 09/06/2025 13:40:55 09/07/20 25 08/30/2025 scler other apy (PROC ) No observ ation record ed. [address], [address], 09/09/2025 14:28:06 09/12/2009/12/2025 herminio s mappi ng, lower extre mity No observ ation record ed. [place] [id number] Not Available 2024 17:37:41 09/19/20 25 09/19/2025 imagi ng/di agnos tic resul t No observ ation record ed. [facility] Not Available 2024 16:44:23 09/19/20 25 09/19/2025 imagi ng/di agnos tic resul t No observ ation record ed. [address], [address], 09/19/2025 16:42:08 Result Notes None recorded. Problems Name Problem SNOMED Code Status Onset Date Resolution Date Notes Provider Name and Address Organization Details Recorded Time Deep venous thrombosis 014320330 Active [address], [place], [address], DREW Feliciano MD 4 15:25:29 Thrombophi michele [id number] Active 2016 plasminogi n error Sergio Feliciano MD [address], [place], [address], DREW Feliciano MD 7 09:26:40 Venous insufficie ncy of lower limb 399301892 Active [address], [place], [address], DREW Feliciano MD 4 15:26:12 Lyme disease 69599036 Active [address], [place], [address], DREW Feliciano MD 9 11:17:45 Morbid obesity 079943252 Active [address], [place], [address], DREW Feliciano MD 4 15:25:35 Problem Notes None recorded. Medical Equipment None Reported. Allergies No known drug allergies Medications Name Sig Start Date Stop Date Status Note LastModified by Organization Details LastModified Time Prescript ion - Renewal 01/13 completed tamsulos in Not Available Not Available Not Available doxycycli ne hyclate 100 mg capsule Take 1 capsule twice a day by oral route for 21 days. 09/25 completed Not Available Not Available Not Available ibuprofen 800 mg tablet 04/11 completed Not Available Not Available Not Available ciproflox acin 500 mg tablet 04/11 completed Not Available Not Available Not Available sildenafi l 100 mg tablet TAKE ONE TABLET BY MOUTH ONCE DAILY 04/11 completed Not Available Not Available Not Available oxycodone -acetamin ophen 5 mg-325 mg tablet 01/13 completed Not Available Not Available Not Available warfarin 5 mg tablet TAKE ONE TABLET BY MOUTH ONCE DAILY DIRECTED BY PRESCRIB ER 02/21 completed Not Available Not Available Not Available enoxapari n 150 mg/mL subcutane ous syringe Inject 1 mL every 12 hours by subcutan eous route. 01/31 completed Not Available Not Available Not Available warfarin 1 mg tablet TAKE ONE TABLET BY MOUTH ON Thursday AND Sundays completed Not Available Not Available Not Available SSD 1 % topical cream Apply 1 applicat ion twice a day by topical route for 30 days. 04/11 completed Not Available Not Available Not Available amoxicill in 875 mg-potass ium clavulana te 125 mg tablet Take 1 tablet every 12 hours by oral route. 09/25 completed Not Available Not Available Not Available Xarelto 20 mg tablet Take 1 tablet every day by oral route. 2024 active Not Available Not Available Not Avai lable Vitals Date Recorded Body weight Oxygen saturation Oxygen saturation in Arterial blood by Pulse oximetry Heart rate Systolic And Diastolic Provider Name and Address Organization Details Last Updated DateTime 4 444598. 47 g 96 % 96 % 71 /min 140/88 mm[Hg] Isi Feliciano MD 4 15:22:53 Date Recorded Body height Body mass index (BMI) Body weight Oxygen saturation Oxygen saturation in Arterial blood by Pulse oximetry Heart rate Systolic And Diastolic Provider Name and Address Organization Details Last Updated DateTime 5 182.88 cm 49.6 kg/m2 114381. 81 g 96 % 96 % 108 /min 140/88 mm[Hg] Isi Feliciano MD 5 14:10:58 Date Recorded Body weight Oxygen saturation Oxygen saturation in Arterial blood by Pulse oximetry Heart rate Systolic And Diastolic Provider Name and Address Organization Details Last Updated DateTime 4 759993. 14 g 95 % 95 % 101 /min 140/90 mm[Hg] Ernst Feliciano MD 4 15:16:51 Date Recorded Body weight Body mass index (BMI) Body height Oxygen saturation Oxygen saturation in Arterial blood by Pulse oximetry Heart rate Systolic And Diastolic Provider Name and Address Organization Details Last Updated DateTime 4 952278. 77 g 50.3 kg/m2 182.88 cm 93 % 93 % 72 /min 128/88 mm[Hg] Isi Feliciano MD 4 14:30:02 Social History Question Answer Notes LastModified by Organizat [employer] Details LastModified Time Tobacco Smoking Status Never Smoker Not Available [facility] 10/02/2020 03:48:01 Marital Status Informatio n not available 10/31/2018 What Was The Date Of Your Most Recent Tobacco Screening? 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 Family History Nothing Reported. Medical History No medical history recorded. Immunizations Vaccine Type Date Status Note Provider Nam e and Address Organization Details Recorded Time influenza, unspecified formulation 4 completed DREW Gandhi MD 09/20/2024 16:16:05 Influenza, split virus, quadrivalent, preservative 7 completed Not Available [facility] 12/31/2019 02:20:29 Tdap 0 completed DREW osman MD 04/19/2020 11:56:10 SARS-COV-2 (COVID-19) vaccine, UNSPECIFIED [address], [place], [address], DREW Feliciano MD 04/22/2021 12:20:38 Influenza, split virus, quadrivalent, preservative [address], [place], [address], DREW Feliciano MD 08/28/2021 15:25:32 Tdap 4 completed DREW Little MD 07/13/2024 15:42:52 Past Encounters Encounter ID Performer Location Encounter Start Date Encounter Closed Date Diagnosis/Indication Diagnosis SNOMED-CT Code Diagnosis ICD10 Code Diagnosis IMO Codes Diagnosis Note [id number] MD [address] [place] [address] 07/23/2017 08:52:53 07/23/2017 09:56:22 Adult health examination 954944879 Z00.01 Diet exercise and weight loss discussed. Immunizati ons up-to-date . Will arrange for [facility] guard for colon cancer screening. Deep venou s thrombosis of lower extremity 568719843 I82.409 Continue present warfarin update PT/INR. Venous ins ufficiency of lower limb 580450285 I87.2 Monitor skin integrity discussed elevation and local care. [id number] MD [address] [place] [address] 09/10/2017 09:33:26 09/10/2017 09:59:37 [id number] MD sergio [address] [place] [address] 02/04/2018 09:50:22 02/04/2018 12:45:28 Thrombophilia 767103377 D68.59 Will continue on warfarin life long due to thrombophi michele. Lab slip for INR given as well as CBC. Continue with monthly checks. Deep venou s thrombosis of lower extremity 587796040 I82.409 No signs of reoccurren ce. Does have postphlebi tic syndrome. Venous ins ufficiency of lower limb 181926860 I87.2 Now complying with compressio n stockings. Continue efforts at weight loss and elevate legs when needed. [id number] MD [address] [place] [address] 10/27/2018 13:37:49 10/27/2018 15:23:08 Injury of quadriceps muscle 386343702 S76.102A Patient is medically cleared for upcoming repair of his quadriceps muscle Recurrent deep vein thrombosis 106114425 I82.509 The patient has received chronic warfarin therapy. His warfarin is on hold and he is receiving bridging with Lovenox. [id number] MD sergio [address] md [address] [place] [address] 01/13/2019 08:48:54 01/13/2019 09:53:29 Adult health examination 707268177 Z00.01 He declines colon cancer screening. Now that he is retired and recovering from knee surgery he is working on diet for weight loss. Immunizati ons are up-to-date . Check inr warfarin therapy. [id number] MD sergio [address] md [address] [place] [address] 07/28/2019 09:22:25 07/28/2019 10:13:26 Eruption 008186854 R21 appears to have a dermatomal distributi on could have been otherwise asymptomat ic shingles but he had no papular vesicular lesions consider tick bite or Lyme check Lyme titer Recurrent deep vein thrombosis 710595826 I82.509 Check PT/INR now and monthly no signs of recurrence or bleeding [id number] MD sergio [address] md [address] [place] [address] 09/30/2019 10:53:28 09/30/2019 11:46:50 Lyme disease 99204113 A69.20 Doing well no sequela I of infection never really was symptomati c Deep venou s thrombosis 781224431 I82.409 No signs of recurrence continues warfarin 5 mg Thursday to Thursday 6 mg Thursday update PT/INR in a month [id number] MD sergio [address] md [address] [place] [address] 12/20/2019 09:25:18 12/20/2019 09:57:24 Deep venous thrombosis 324870079 I82.409 on warfarin and inr theraputic , complies with medication . Enlargement of neck 2983 27519 M95.3 Sleep apnea sleep apnea screening negative no signs or symptoms of Venous ins ufficiency of lower limb 080171432 I87.2 No signs of ulceration or phlebitis [id number] MD sergio [address] md [address] [place] [address] 04/19/2020 10:53:28 04/19/2020 11:32:12 Adult health examination 967732714 Z00.01 He declines colon cancer screening. Now that he is retired working on diet for weight loss. Tdap given, Check inr warfarin therapy. Update lipids PSA follow-up 6 months [id number] MD sergio [address] md [address] [place], [place] [address] 10/16/2020 11:04:21 10/16/2020 14:37:17 Deep venous thrombosis 445423745 I82.409 INR is therapeuti c clinically stable no excessive bleeding for refills on warfarin called in today also refill of sildenafil for erectile dysfunctio n Adult heal th examination 473725849 Z00.01 He declines colon cancer screening. Now that he is retired working on diet for weight loss. Tdap given, Check inr warfarin therapy. Update lipids PSA follow-up 6 months [id number] MD sergio [address] md [address], [place] [address] 04/22/2021 10:58:23 04/22/2021 11:48:00 Adult health examination 300021381 Z00.01 He declines colon cancer screening. Diet exercise and weight loss discussed blood pressure reviewed and satisfacto ry lipids reviewed and satisfacto ry he has had his Covid vaccine follow-up 6 months [id number] MD [address] md [address] [place] [address] 08/28/2021 15:16:56 08/28/2021 15:21:54 Needs influenza immunization 851964631 Z28.3 [id number] MIRIAN Navarro md [address] [place] [address] 04/13/2023 09:18:14 04/13/2023 10:18:07 Chronic cough 93633751 R05.3 Venous ins ufficiency of lower limb 637600705 I87.2 Thrombophilia 724011762 D68.59 Hyperglycemia 63893659 R 73.9 [id number] MD sergio [address] md [address] [place] [address] 02/22/2024 14:51:59 02/22/2024 15:40:52 Deep venous thrombosis 532037355 I82.409 Today will be his last dose of warfarin. Tomorrow he will begin Xarelto 20 mg a day for full anticoagul ation. Follow-up in 6 months. At that point check chemistry CBC and lupus anticoagul ant consider decreasing dose to 10 mg a day. [id number] MIRIAN Navarro md [address] [place] [address] 07/13/2024 14:59:49 07/13/2024 15:47:08 Open wound of right lower leg 9603820170 1268681 S81.801A Venous ins ufficiency of lower limb 538467516 I87.2 Morbid obesity 484250173 E66.01 [id number] MD sergio [address] md [address] [place] [address] 09/21/2024 13:21:35 09/21/2024 13:22:51 [id number] MD sergio [address] md [address] [place] [address] 11/10/2024 13:59:43 11/10/2024 15:03:23 Adult health examination 006483094 Z00.01 Diet exercise and weight loss discussed lipids reviewed and satisfacto ry. For hyperglyce evelin check fasting A1c and glucose now that he stopped drinking soda. Continue efforts at weight loss. He declines colonoscop y or Cologuard he did agree to a PSA test Deep venou s thrombosis 593903419 I82.409 Continue Xarelto prophylact ically Hyperglycemia 06749410 R 73.9 [id number] MD sergio [address] md [address] [place] [address] 04/11/2025 13:45:54 04/11/2025 14:24:57 Dental abscess 720965092 K04.7 7822 Complete 10-day course of amoxicilli n referred to dental. Follow-up for routine annual exam next year. Health Concerns Section Related Observation LastModified by Organization Detai ls LastModified Time None Recorded Concern Status LastModified by Organization Details LastModified Time None Recorded Advance Directives Directive None Recorded Payers Insurance Date Sequence Insurance Name Policy Number Policy Whitlock Covered Member ID Whitlock Member ID Guarantor Name 08/17/2025 1 [place] [facility] [place] [id number] Denis Caba [id number] Denis Caba Notes Date Note Type Note Provider Name and Address Organization Details Recorded Time 02/22/2024 text/html Follow-up for history of reoccurring DVT. He continues warfarin but would like to switch to a direct anticoagulant so monitoring is not required. He has had no DVT for over 2 years but has had multiple recurrences in the past. No chest pain or palpitations to indicate atrial fibrillation. He does have history of venous insufficiency and gets occasional leg ulcers. Sergio Feliciano MD [address], [place], [address], DREW Feliciano MD 02/22/2024 15:52:46 07/13/2024 text/html Comes in today for management of a large ulcer of his right lower leg. He states about a month ago he accidentally smacked into one of the trailer hitch is in back of his pickup truck. He states it initially bruised and from his description had a large hematoma. That is not unusual for him given his longstanding history of stasis of the legs. However he states that it started to bubble up and then opened up and drained about 2 weeks ago. He has been using [id number] antibiotic ointment in the interim and trying to keep it wrapped. Nonetheless he has also been using his compression stocking. He denies any fever chills shortness of breath chest pain or significant pain in the leg. He states he does have a known high pain tolerance. Sergio Feliciano MD [address], [place], [address], DREW Feliciano MD 07/14/2024 17:46:36 11/10/2024 text/html Here for annual exam. No complaints today. He has history of venous insufficiency and frequent venous stasis ulcers. He is being followed at the wound clinic for recent large ulcer on the right leg. Things are gradually healing. He also has a lymphedema pump at home which she is using. For recurrent DVT continue Xarelto. He lives with his and they often look after 4-5 grandchildren. Recent blood work shows a cholesterol 154 LDL of 100 fasting glucose of 160. He has stopped drinking soda was drinking up to 12 sodas a day. He is lost 14 pounds. His accompanies him today and she is watching his carbohydrate consumption. 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 Recently he presented complaining of severe toothache and right-sided facial swelling. He was placed on amoxicillin and is feeling better. He is scheduled for vascular testing to rule out arterial insufficiency. Sergio Feliciano MD [address], [place], [address], DREW Feliciano MD 04/11/2025 14:18:16
== END 2025-09-19 14:58 | disposition home or self-care (01) ==
LOC: HO.US 14:57
PROVIDERS: PCP Family Medicine; Visit Provider Student in an Organized Health Care Education/Training Program
DX: I87.2 Venous insufficiency (chronic) (peripheral) (principal)
CPT/HCPCS: 93971

== ENCOUNTER → 2025-09-19 15:30 | Outpatient (BNV) | payer BC, SELFPAY | PROVIDERS: PCP Family Medicine; Visit Provider Student in an Organized Health Care Education/Training Program | DX: I82.531 Chronic embolism and thrombosis of right popliteal vein (principal) | CPT/HCPCS: 93971; 99499 ==

== ENCOUNTER 2025-10-04 12:38 | Outpatient (REF) | payer BC, SELFPAY ==
--- NOTE | ~2025-10-04 | US_ITS ---
EXAMINATION: US TRIPLEX LOWER EXTREMITY, RIGHT CLINICAL INFORMATION: Aborted procedure COMPARISON: None available. TECHNIQUE: A single grayscale imaging of a vessel in the right mid thigh FINDINGS: A single transverse image through a 9 mm vessel labeled right mid was submitted. US/US venous duplex LE RT IMPRESSION: Procedure canceled due to excessive tortuosity of the vascularity Electronically signed by: Dami Barrera MD 10/04/2025 02:19 PM EST
--- OUTSIDE RECORDS SUMMARY | 2025-10-04 15:15 | XMS_ITS | Data Portability ---
Author Organization [facility] , Telemedicine Address [address] [place] [id number] Assessment No assessment recorded. Plan of Treatment [...] 15.5 sec 9.5-12 .1 high Not Available [address] [place] [address], [address], 02/06/2024 12:54:31 02/06/20 24 02/06/2024 PROTH ROMBI [...] .5 Mecha nical Valve . Not Available [address] [place] [address], [address], 02/06/2024 12:54:31 02/13/20 24 02/13/2024 PROTH ROMBI N TIME INR prothrombin time 19.7 sec 9.5-12 .1 high Not Available [address] [place] [address], 49166, 02/13/2024 12:54:18 02/13/20 24 02/13/2024 PROTH ROMBI [...] .5 Mecha nical Valve . Not Available [address] [place] [address], 68497, 02/13/2024 12:54:18 07/14/20 24 07/15/2024 WOUND CULTU RE wound culture CULT Commen ts Not Available [address] [place] [address], 16125, 07/15/2024 13:33:14 07/14/20 24 07/15/2024 WOUND CULTU RE wound culture 5 Young Growth , Reincu bated Not Available [address] [place] [address], 86605, 07/15/2024 13:33:14 07/14/20 24 07/15/2024 WOUND CULTU RE O:aersp Aeromo kinza specie s Not Available [address] [place] [address], 87624, 07/15/2024 13:33:14 07/14/20 24 07/15/2024 WOUND CULTU RE wound culture Isolat e Commen t: Not Available [address] [place] [address], 15923, 07/15/2024 13:33:14 07/14/20 24 07/15/2024 WOUND CULTU RE wound culture AEROMO KINZA HYDROP FLORA CAVIAE COMPLE X Not Available [address] [place] [address], 68980, 07/15/2024 13:33:14 07/14/20 24 07/15/2024 WOUND CULTU RE wound culture Isolat e Commen t: Not Available [address] [place] [address], 58687, 07/15/2024 13:33:14 07/14/20 24 07/15/2024 WOUND CULTU RE wound culture Identi fied by MALDI- TOF Not Available [address] [place] [address], 76887, 07/15/2024 13:33:14 07/14/20 24 07/15/2024 WOUND CULTU RE wound culture Quanti ty abnormal Not Available [address] [place] [address], 89271, 07/15/2024 13:33:14 07/14/20 24 07/15/2024 WOUND CULTU RE wound culture 2+ abnormal Not Available [address] [place] [address], 73725, 07/15/2024 13:33:14 07/14/20 24 07/15/2024 GRAM STAIN gram stain GS Gram Stain Result abnormal Not Available [address] [place] [address], 73610, 07/15/2024 13:43:58 07/14/20 24 07/15/2024 GRAM STAIN gram stain ` No Polymo rphonu clear Cells Not Available [address] [place] [address], 99222, 07/15/2024 13:43:58 07/14/20 24 07/15/2024 GRAM STAIN gram stain 2 A 2+ (Few) Gram Positi ve Cocci abnormal Not Available [address] [place] [address], 79369, 07/15/2024 13:43:58 07/14/20 24 07/15/2024 WOUND CULTU RE wound culture CULT Commen ts Not Available [address] [place] [address], 16837, 07/15/2024 13:43:58 07/14/20 24 07/15/2024 WOUND CULTU RE wound culture 5 Young Growth , Reincu bated Not Available [address] [place] [address], 89945, 07/15/2024 13:43:58 07/14/20 24 07/15/2024 WOUND CULTU RE O:aersp Aeromo kinza specie s Not Available [address] [place] [address], 55678, 07/15/2024 13:43:58 07/14/20 24 07/15/2024 WOUND CULTU RE wound culture Isolat e Commen t: Not Available [address] [place] [address], 28697, 07/15/2024 13:43:58 07/14/20 24 07/15/2024 WOUND CULTU RE wound culture AEROMO KINZA HYDROP FLORA CAVIAE COMPLE X Not Available [address] [place] [address], 50724, 07/15/2024 13:43:58 07/14/20 24 07/15/2024 WOUND CULTU RE wound culture Isolat e Commen t: Not Available [address] [place] [address], 38373, 07/15/2024 13:43:58 07/14/20 24 07/15/2024 WOUND CULTU RE wound culture Identi fied by MALDI- TOF Not Available [address] [place] [address], 63814, 07/15/2024 13:43:58 07/14/20 24 07/15/2024 WOUND CULTU RE wound culture Quanti ty abnormal Not Available [address] [place] [address], 13170, 07/15/2024 13:43:58 07/14/20 24 07/15/2024 WOUND CULTU RE wound culture 2+ abnormal Not Available [address] [place] [address], 32930, 07/15/2024 13:43:58 07/14/20 24 07/15/2024 GRAM STAIN gram stain GS Gram Stain Result abnormal Not Available [address] [place] [address], 74955, 07/16/2024 08:37:20 07/14/20 24 07/15/2024 GRAM STAIN gram stain ` No Polymo rphonu clear Cells Not Available [address] [place] [address], 41503, 07/16/2024 08:37:20 07/14/20 24 07/15/2024 GRAM STAIN gram stain 2 A 2+ (Few) Gram Positi ve Cocci abnormal Not Available [address] [place] [address], 06998, 07/16/2024 08:37:20 07/14/20 24 07/16/2024 WOUND CULTU RE wound culture CULT Commen ts Not Available [address] [place] [address], 18426, 07/16/2024 08:37:21 07/14/20 24 07/16/2024 WOUND CULTU RE wound culture 5 Young Growth , Reincu bated Not Available [address] [place] [address], 87661, 07/16/2024 08:37:21 07/14/20 24 07/16/2024 WOUND CULTU RE O:aersp Aeromo kinza specie s Not Available [address] [place] [address], 18386, 07/16/2024 08:37:21 07/14/20 24 07/16/2024 WOUND CULTU RE wound culture Isolat e Commen t: Not Available [address] [place] [address], 50082, 07/16/2024 08:37:21 07/14/20 24 07/16/2024 WOUND CULTU RE wound culture AEROMO KINZA HYDROP FLORA CAVIAE COMPLE X Not Available [address] [place] [address], 36849, 07/16/2024 08:37:21 07/14/20 24 07/16/2024 WOUND CULTU RE wound culture Isolat e Commen t: Not Available [address] [place] [address], 36789, 07/16/2024 08:37:21 07/14/20 24 07/16/2024 WOUND CULTU RE wound culture Identi fied by MALDI- TOF Not Available [address] [place] [address], 58321, 07/16/2024 08:37:21 07/14/20 24 07/16/2024 WOUND CULTU RE wound culture Quanti ty abnormal Not Available [address] [place] [address], 05048, 07/16/2024 08:37:21 07/14/20 24 07/16/2024 WOUND CULTU RE wound culture 2+ abnormal Not Available [address] [facility] [address] [place] [address], 10[address], 07/16/2024 08:37:21 07/14/20 24 07/16/2024 MICRO SCAN NEGAT MEG DRUG PANEL amikacin <=16 susceptib le Not Available [address] [place] [address], 81885, 07/16/2024 08:37:22 07/14/20 24 07/16/2024 MICRO SCAN NEGAT MEG DRUG PANEL amoxicillin/ clavulanate 16/8 intermedi ate Not Available [address] [place] [address], 99041, 07/16/2024 08:37:22 07/14/20 24 07/16/2024 MICRO SCAN NEGAT MEG DRUG PANEL ampicillin/s ulbactam >16/8 resistant Not Available [address] [facility] [address] [place] [address], 51731, 07/16/2024 08:37:22 07/14/20 24 07/16/2024 MICRO SCAN NEGAT MEG DRUG PANEL cefazolin 16 intermedi ate Not Available [address] [place] [address], 41757, 07/16/2024 08:37:22 07/14/20 24 07/16/2024 MICRO SCAN NEGAT MEG DRUG PANEL cefepime <=2 susceptib le Not Available [address] [place] [address], 49939, 07/16/2024 08:37:22 07/14/20 24 07/16/2024 MICRO SCAN NEGAT MEG DRUG PANEL cefotaxime <=2 susceptib le Not Available [address] [place] [address], 18031, 07/16/2024 08:37:22 07/14/20 24 07/16/2024 MICRO SCAN NEGAT MEG DRUG PANEL ceftazidime <=1 susceptib le Not Available [address] [place] [address], 50722, 07/16/2024 08:37:22 07/14/20 24 07/16/2024 MICRO SCAN NEGAT MEG DRUG PANEL ceftriaxone <=1 susceptib le Not Available [address] [place] [address], 18422, 07/16/2024 08:37:22 07/14/20 24 07/16/2024 MICRO SCAN NEGAT MEG DRUG PANEL ciprofloxaci n <=0.25 susceptib le Not Available [address] [place] [address], 71142, 07/16/2024 08:37:22 07/14/20 24 07/16/2024 MICRO SCAN NEGAT MEG DRUG PANEL gentamicin <=2 susceptib le Not Available [address] [place] [address], 43200, 07/16/2024 08:37:22 07/14/20 24 07/16/2024 MICRO SCAN NEGAT MEG DRUG PANEL tetracycline <=4 susceptib le Not Available [address] [place] [address], 01395, 07/16/2024 08:37:22 07/14/20 24 07/16/2024 MICRO SCAN NEGAT MEG DRUG PANEL trimethoprim /sulfamethox azole <=0.5/ 9.5 susceptib le Not Available [address] [place] [address], 72879, 07/16/2024 08:37:22 07/14/20 24 07/16/2024 MICRO SCAN NEGAT MEG DRUG PANEL piperacillin /tazobactam <=8 susceptib le Not Available [address] [place] [address], 06715, 07/16/2024 08:37:22 07/14/20 24 07/15/2024 GRAM STAIN gram stain GS Gram Stain Result abnormal Not Available [address] [place] [address], 27498, 07/16/2024 09:30:22 07/14/20 24 07/15/2024 GRAM STAIN gram stain ` No Polymo rphonu clear Cells Not Available [address] [place] [address], 12240, 07/16/2024 09:30:22 07/14/20 24 07/15/2024 GRAM STAIN gram stain 2 A 2+ (Few) Gram Positi ve Cocci abnormal Not Available [address] [place] [address], 13728, 07/16/2024 09:30:22 07/14/20 24 07/16/2024 WOUND CULTU RE wound culture CULT Commen ts Not Available [address] [place] [address], 74766, 07/16/2024 09:30:23 07/14/20 24 07/16/2024 WOUND CULTU RE wound culture 5 Young Growth , Reincu bated Not Available [address] [place] [address], 32224, 07/16/2024 09:30:23 07/14/20 24 07/16/2024 WOUND CULTU RE O:aersp Aeromo kinza specie s Not Available [address] [place] [address], 22904, 07/16/2024 09:30:23 07/14/20 24 07/16/2024 WOUND CULTU RE wound culture Isolat e Commen t: Not Available [address] [place] [address], 53880, 07/16/2024 09:30:23 07/14/20 24 07/16/2024 WOUND CULTU RE wound culture AEROMO KINZA HYDROP FLORA CAVIAE COMPLE X Not Available [address] [place] [address], 13164, 07/16/2024 09:30:23 07/14/20 24 07/16/2024 WOUND CULTU RE wound culture Isolat e Commen t: Not Available [address] [place] [address], 10959, 07/16/2024 09:30:23 07/14/20 24 07/16/2024 WOUND CULTU RE wound culture Identi fied by MALDI- TOF Not Available [address] [place] [address], 77732, 07/16/2024 09:30:23 07/14/20 24 07/16/2024 WOUND CULTU RE wound culture Quanti ty abnormal Not Available [address] [place] [address], 84233, 07/16/2024 09:30:23 07/14/20 24 07/16/2024 WOUND CULTU RE wound culture 2+ abnormal Not Available [address] [place] [address], 63466, 07/16/2024 09:30:23 07/14/20 24 07/16/2024 MICRO SCAN NEGAT MEG DRUG PANEL amikacin <=16 susceptib le Not Available [address] [place] [address], 02678, 07/16/2024 09:30:23 07/14/20 24 07/16/2024 MICRO SCAN NEGAT MEG DRUG PANEL amoxicillin/ clavulanate 16/8 intermedi ate Not Available [address] [place] [address], 99547, 07/16/2024 09:30:23 07/14/20 24 07/16/2024 MICRO SCAN NEGAT MEG DRUG PANEL ampicillin/s ulbactam >16/8 resistant Not Available [address], [address], 07/16/2024 09:30:23 07/14/20 24 07/16/2024 MICRO SCAN NEGAT MEG DRUG PANEL cefazolin 16 intermedi ate Not Available [address] [place] [address], 97379, 07/16/2024 09:30:23 07/14/20 24 07/16/2024 MICRO SCAN NEGAT MEG DRUG PANEL cefepime <=2 susceptib le Not Available [address] [place] [address], 90416, 07/16/2024 09:30:23 07/14/20 24 07/16/2024 MICRO SCAN NEGAT MEG DRUG PANEL cefotaxime <=2 susceptib le Not Available [address] [place] [address], 59415, 07/16/2024 09:30:23 07/14/20 24 07/16/2024 MICRO SCAN NEGAT MEG DRUG PANEL ceftazidime <=1 susceptib le Not Available [address] [place] [address], 86094, 07/16/2024 09:30:23 07/14/20 24 07/16/2024 MICRO SCAN NEGAT MEG DRUG PANEL ceftriaxone <=1 susceptib le Not Available [address] [place] [address], 33863, 07/16/2024 09:30:23 07/14/20 24 07/16/2024 MICRO SCAN NEGAT MEG DRUG PANEL ciprofloxaci n <=0.25 susceptib le Not Available [address] [place] [address], 40355, 07/16/2024 09:30:23 07/14/20 24 07/16/2024 MICRO SCAN NEGAT MEG DRUG PANEL gentamicin <=2 susceptib le Not Available [address] [place] [address], 26864, 07/16/2024 09:30:23 07/14/20 24 07/16/2024 MICRO SCAN NEGAT MEG DRUG PANEL tetracycline <=4 susceptib le Not Available [address] [place] [address], 09847, 07/16/2024 09:30:23 07/14/20 24 07/16/2024 MICRO SCAN NEGAT MEG DRUG PANEL trimethoprim /sulfamethox azole <=0.5/ 9.5 susceptib le Not Available [address] [place] [address], 76437, 07/16/2024 09:30:23 07/14/20 24 07/16/2024 MICRO SCAN NEGAT MEG DRUG PANEL piperacillin /tazobactam <=8 susceptib le Not Available [address] [place] [address], 02731, 07/16/2024 09:30:23 07/14/20 24 07/15/2024 GRAM STAIN gram stain GS Gram Stain Result abnormal Not Available [address] [place] [address], 92419, 07/16/2024 14:43:57 07/14/20 24 07/15/2024 GRAM STAIN gram stain ` No Polymo rphonu clear Cells Not Available [address] [place] [address], 64839, 07/16/2024 14:43:57 07/14/20 24 07/15/2024 GRAM STAIN gram stain 2 A 2+ (Few) Gram Positi ve Cocci abnormal Not Available [address] [place] [address], 41704, 07/16/2024 14:43:57 07/14/20 24 07/16/2024 WOUND CULTU RE O:aersp Aeromo kinza specie s Not Available [address] [place] [address], 57584, 07/16/2024 14:43:58 07/14/20 24 07/16/2024 WOUND CULTU RE wound culture Isolat e Commen t: Not Available [address] [place] [address], 47166, 07/16/2024 14:43:58 07/14/20 24 07/16/2024 WOUND CULTU RE wound culture AEROMO KINZA HYDROP FLORA CAVIAE COMPLE X Not Available [address] [place] [address], 59041, 07/16/2024 14:43:58 07/14/20 24 07/16/2024 WOUND CULTU RE wound culture Isolat e Commen t: Not Available [address] [place] [address], 54121, 07/16/2024 14:43:58 07/14/20 24 07/16/2024 WOUND CULTU RE wound culture Identi fied by MALDI- TOF Not Available [address] [place] [address], 36904, 07/16/2024 14:43:58 07/14/20 24 07/16/2024 WOUND CULTU RE wound culture Quanti ty abnormal Not Available [address] [place] [address], 52063, 07/16/2024 14:43:58 07/14/20 24 07/16/2024 WOUND CULTU RE wound culture 2+ abnormal Not Available [address] [place] [address], 19403, 07/16/2024 14:43:58 07/14/20 24 07/16/2024 WOUND CULTU RE O:entfac Entero coccus faecal is Not Available [address] [place] [address], 00451, 07/16/2024 14:43:58 07/14/20 24 07/16/2024 WOUND CULTU RE wound culture Isolat e Commen t: Not Available [address] [place] [address] [facility] [place] [address], 56560, 07/16/2024 14:43:58 07/14/2007/16/2024 WOUND CULTU RE wound culture Identi fied by MALDI- TOF Not Available [address] [place] [address], 37972, 07/16/2024 14:43:58 07/14/20 24 07/16/2024 WOUND CULTU RE wound culture Quanti ty abnormal Not Available [address] [place] [address], 83074, 07/16/2024 14:43:58 07/14/2007/16/2024 WOUND CULTU RE wound culture 2+ abnormal Not Available [facility] [address] [place] [address], 17558, 07/16/2024 14:43:58 07/14/20 24 07/16/2024 MICRO SCAN NEGAT MEG DRUG PANEL amikacin <=16 susceptib le Not Available [address] [place] [address], 09801, 07/16/2024 14:43:58 07/14/20 24 07/16/2024 MICRO SCAN NEGAT MEG DRUG PANEL amoxicillin/ clavulanate 16/8 intermedi ate Not Available [address] [place] [address], 65828, 07/16/2024 14:43:58 07/14/20 24 07/16/2024 MICRO SCAN NEGAT MEG DRUG PANEL ampicillin/s ulbactam >16/8 resistant Not Available [facility] [address] [place] [address], 52508, 07/16/2024 14:43:58 07/14/20 24 07/16/2024 MICRO SCAN NEGAT MEG DRUG PANEL cefazolin 16 intermedi ate Not Available [address] [place] [address], 76837, 07/16/2024 14:43:58 07/14/20 24 07/16/2024 MICRO SCAN NEGAT MEG DRUG PANEL cefepime <=2 susceptib le Not Available [address] [place] [address], 39724, 07/16/2024 14:43:58 07/14/20 24 07/16/2024 MICRO SCAN NEGAT MEG DRUG PANEL cefotaxime <=2 susceptib le Not Available [address] [place] [address], 04078, 07/16/2024 14:43:58 07/14/2007/16/2024 MICRO SCAN NEGAT MEG DRUG PANEL ceftazidime <=1 susceptib le Not Available [address] [place] [address], 85180, 07/16/2024 14:43:58 07/14/2007/16/2024 MICRO SCAN NEGAT MEG DRUG PANEL ceftriaxone <=1 susceptib le Not Available [address] [place] [address], 42110, 07/16/2024 14:43:58 07/14/2007/16/2024 MICRO SCAN NEGAT MEG DRUG PANEL ciprofloxaci n <=0.25 susceptib le Not Available [address] [place] [address], 59391, 07/16/2024 14:43:58 07/14/2007/16/2024 MICRO SCAN NEGAT MEG DRUG PANEL gentamicin <=2 susceptib le Not Available [address] [place] [address], 29245, 07/16/2024 14:43:58 07/14/2007/16/2024 MICRO SCAN NEGAT MEG DRUG PANEL tetracycline <=4 susceptib le Not Available [address] [place] [address], 83723, 07/16/2024 14:43:58 07/14/2007/16/2024 MICRO SCAN NEGAT MEG DRUG PANEL trimethoprim /sulfamethox azole <=0.5/ 9.5 susceptib le Not Available [address] [place] [address], 56937, 07/16/2024 14:43:58 07/14/20 24 07/16/2024 MICRO SCAN NEGAT MEG DRUG PANEL piperacillin /tazobactam <=8 susceptib le Not Available [address] [place] [address], 48541, 07/16/2024 14:43:58 07/14/20 24 07/15/2024 GRAM STAIN gram stain GS Gram Stain Result abnormal Not Available [address] [place] [address], 18284, 07/17/2024 11:18:52 07/14/20 24 07/15/2024 GRAM STAIN gram stain ` No Polymo rphonu clear Cells Not Available [address] [place] [address], 01473, 07/17/2024 11:18:52 07/14/20 24 07/15/2024 GRAM STAIN gram stain 2 A 2+ (Few) Gram Positi ve Cocci abnormal Not Available [address] [place] [address], 85303, 07/17/2024 11:18:52 07/14/20 24 07/17/2024 WOUND CULTU RE wound culture CULT Commen ts Not Available [address] [place] [address], 27010, 07/17/2024 11:18:53 07/14/20 24 07/17/2024 WOUND CULTU RE wound culture 5 Young Growth , Reincu bated Not Available [address] [place] [address], 78951, 07/17/2024 11:18:53 07/14/20 24 07/17/2024 WOUND CULTU RE O:aersp Aeromo kinza specie s Not Available [address] [place] [address], 86447, 07/17/2024 11:18:53 07/14/20 24 07/17/2024 WOUND CULTU RE wound culture Isolat e Commen t: Not Available [address] [place] [address], 94447, 07/17/2024 11:18:53 07/14/20 24 07/17/2024 WOUND CULTU RE wound culture AEROMO KINZA HYDROP FLORA CAVIAE COMPLE X Not Available [address] [place] [address], 56073, 07/17/2024 11:18:53 07/14/20 24 07/17/2024 WOUND CULTU RE wound culture Isolat e Commen t: Not Available [address] [place] [address], 73413, 07/17/2024 11:18:53 07/14/20 24 07/17/2024 WOUND CULTU RE wound culture Identi fied by MALDI- TOF Not Available [address] [place] [address], 40437, 07/17/2024 11:18:53 07/14/20 24 07/17/2024 WOUND CULTU RE wound culture Quanti ty abnormal Not Available [address] [place] [address], 88640, 07/17/2024 11:18:53 07/14/20 24 07/17/2024 WOUND CULTU RE wound culture 2+ abnormal Not Available [facility] [address], 13588, 07/17/2024 11:18:53 07/14/20 24 07/17/2024 WOUND CULTU RE O:entfac Entero coccus faecal is Not Available [address] [place] [address], 49393, 07/17/2024 11:18:53 07/14/20 24 07/17/2024 WOUND CULTU RE wound culture Isolat e Commen t: Not Available [address] [place] [address], 84720, 07/17/2024 11:18:53 07/14/20 24 07/17/2024 WOUND CULTU RE wound culture Identi fied by MALDI- TOF Not Available [address] [place] [address], 76855, 07/17/2024 11:18:53 07/14/20 24 07/17/2024 WOUND CULTU RE wound culture Quanti ty abnormal Not Available [address], 53927, 07/17/2024 11:18:53 07/14/20 24 07/17/2024 WOUND CULTU RE wound culture 2+ abnormal Not Available [address] [facility] [address] [place] [address], 96513, 07/17/2024 11:18:53 07/14/20 24 07/17/2024 MICRO SCAN NEGAT MEG DRUG PANEL amikacin <=16 susceptib le Not Available [address] [place] [address], 63553, 07/17/2024 11:18:53 07/14/20 24 07/17/2024 MICRO SCAN NEGAT MEG DRUG PANEL amoxicillin/ clavulanate 16/8 intermedi ate Not Available [address] [place] [address], 52967, 07/17/2024 11:18:53 07/14/20 24 07/17/2024 MICRO SCAN NEGAT MEG DRUG PANEL ampicillin/s ulbactam >16/8 resistant Not Available [address] [facility] [address] [place] [address], 86393, 07/17/2024 11:18:53 07/14/20 24 07/17/2024 MICRO SCAN NEGAT MEG DRUG PANEL cefazolin 16 intermedi ate Not Available [address] [place] [address], 83643, 07/17/2024 11:18:53 07/14/20 24 07/17/2024 MICRO SCAN NEGAT MEG DRUG PANEL cefepime <=2 susceptib le Not Available [address] [place] [address], 39178, 07/17/2024 11:18:53 07/14/20 24 07/17/2024 MICRO SCAN NEGAT MEG DRUG PANEL cefotaxime <=2 susceptib le Not Available [address] [place] [address], 63330, 07/17/2024 11:18:53 07/14/20 24 07/17/2024 MICRO SCAN NEGAT MEG DRUG PANEL ceftazidime <=1 susceptib le Not Available [address] [place] [address], 79987, 07/17/2024 11:18:53 07/14/20 24 07/17/2024 MICRO SCAN NEGAT MEG DRUG PANEL ceftriaxone <=1 susceptib le Not Available [address] [place] [address], 21803, 07/17/2024 11:18:53 07/14/20 24 07/17/2024 MICRO SCAN NEGAT MEG DRUG PANEL ciprofloxaci n <=0.25 susceptib le Not Available [address] [place] [address], 49369, 07/17/2024 11:18:53 07/14/20 24 07/17/2024 MICRO SCAN NEGAT MEG DRUG PANEL gentamicin <=2 susceptib le Not Available [address] [place] [address], 48245, 07/17/2024 11:18:53 07/14/20 24 07/17/2024 MICRO SCAN NEGAT MEG DRUG PANEL tetracycline <=4 susceptib le Not Available [address] [place] [address], 78580, 07/17/2024 11:18:53 07/14/20 24 07/17/2024 MICRO SCAN NEGAT MEG DRUG PANEL trimethoprim /sulfamethox azole <=0.5/ 9.5 susceptib le Not Available [address] [place] [address], 09940, 07/17/2024 11:18:53 07/14/20 24 07/17/2024 MICRO SCAN NEGAT MEG DRUG PANEL piperacillin /tazobactam <=8 susceptib le Not Available [address] [place] [address], 37389, 07/17/2024 11:18:53 07/14/20 24 07/17/2024 MICRO SCAN POSIT MEG DRUG PANEL ampicillin <=2 susceptib le Not Available [address] [place] [address], 14222, 07/17/2024 11:18:54 07/14/20 24 07/17/2024 MICRO SCAN POSIT MEG DRUG PANEL ciprofloxaci n <=1 susceptib le Not Available [address] [place] [address], 71086, 07/17/2024 11:18:54 07/14/20 24 07/17/2024 MICRO SCAN POSIT MEG DRUG PANEL erythromycin >4 resistant Not Available [address] [place] [address], 13606, 07/17/2024 11:18:54 07/14/20 24 07/17/2024 MICRO SCAN POSIT MEG DRUG PANEL penicillin 2 susceptib le Not Available [address] [place] [address], 79466, 07/17/2024 11:18:54 07/14/20 24 07/17/2024 MICRO SCAN POSIT MEG DRUG PANEL tetracycline >8 resistant Not Available [address] [place] [address], 30395, 07/17/2024 11:18:54 07/14/20 24 07/17/2024 MICRO SCAN POSIT MEG DRUG PANEL vancomycin 1 susceptib le Not Available [address] [place] [address], 44538, 07/17/2024 11:18:54 07/14/20 24 07/15/2024 GRAM STAIN gram stain GS Gram Stain Result abnormal Not Available [address] [place] [address], 19444, 07/17/2024 15:01:04 08/15/07/15/2024 GRAM STAIN gram stain ` No Polymo rphonu clear Cells Not Available [address] [place] [address], 78963, 07/17/2024 15:01:04 07/14/20 24 07/15/2024 GRAM STAIN gram stain 2 A 2+ (Few) Gram Positi ve Cocci abnormal Not Available [address] [place] [address], [id number], 07/17/2024 15:01:04 07/14/20 24 07/17/2024 WOUND CULTU RE O:aersp Aeromo kinza specie s Not Available [address] [place] [address], [id number], 07/17/2024 15:01:04 07/14/20 24 07/17/2024 WOUND CULTU RE wound culture Isolat e Commen t: Not Available [address] [place] [address], [id number], 07/17/2024 15:01:04 07/14/20 24 07/17/2024 WOUND CULTU RE wound culture AEROMO KINZA HYDROP FLORA CAVIAE COMPLE X Not Available [address] [place] [address], [id number], 07/17/2024 15:01:04 07/14/20 24 07/17/2024 WOUND CULTU RE wound culture Isolat e Commen t: Not Available [address] [place] [address], [id number], 07/17/2024 15:01:04 07/14/20 24 07/17/2024 WOUND CULTU RE wound culture Identi fied by MALDI- TOF Not Available [address] [place] [address], [id number], 07/17/2024 15:01:04 07/14/20 24 07/17/2024 WOUND CULTU RE wound culture Quanti ty abnormal Not Available [address] [place] [address], [id number], 07/17/2024 15:01:04 07/14/20 24 07/17/2024 WOUND CULTU RE wound culture 2+ abnormal Not Available [address] [facility] [address] [place] [address], [id number], 07/17/2024 15:01:04 07/14/20 24 07/17/2024 WOUND CULTU RE O:entfac Entero coccus faecal is Not Available [address] [place] [address], 63962, 07/17/2024 15:01:04 07/14/20 24 07/17/2024 WOUND CULTU RE wound culture Isolat e Commen t: Not Available [address] [place] [address], 47356, 07/17/2024 15:01:04 07/14/20 24 07/17/2024 WOUND CULTU RE wound culture Identi fied by MALDI- TOF Not Available [address] [place] [address], [id number], 07/17/2024 15:01:04 07/14/20 24 07/17/2024 WOUND CULTU RE wound culture Quanti ty abnormal Not Available [address] [place] [address], 21288, 07/17/2024 15:01:04 07/14/20 24 07/17/2024 WOUND CULTU RE wound culture 2+ abnormal Not Available [address], [address], 07/17/2024 15:01:04 07/14/20 24 07/17/2024 WOUND CULTU RE O:dipth Diphth eroids Not Available [address] [place] [address], 51720, 07/17/2024 15:01:04 07/14/20 24 07/17/2024 WOUND CULTU RE wound culture Quanti ty abnormal Not Available [address] [place] [address], 47842, 07/17/2024 15:01:04 07/14/20 24 07/17/2024 WOUND CULTU RE wound culture 1+ abnormal Not Available 610 No [facility] Station [address] [place] [address], 75399, 07/17/2024 15:01:04 07/14/20 24 07/17/2024 MICRO SCAN NEGAT MEG DRUG PANEL amikacin <=16 susceptib le Not Available [address] [place] [address], 12667, 07/17/2024 15:01:05 07/14/20 24 07/17/2024 MICRO SCAN NEGAT MEG DRUG PANEL amoxicillin/ clavulanate 16/8 intermedi ate Not Available [address] [place] [address], 22034, 07/17/2024 15:01:05 07/14/20 24 07/17/2024 MICRO SCAN NEGAT MEG DRUG PANEL ampicillin/s ulbactam >16/8 resistant Not Available 610 No [facility] [address] [place] [address], 32656, 07/17/2024 15:01:05 07/14/20 24 07/17/2024 MICRO SCAN NEGAT MEG DRUG PANEL cefazolin 16 intermedi ate Not Available [address] [place] [address], 98877, 07/17/2024 15:01:05 07/14/20 24 07/17/2024 MICRO SCAN NEGAT MEG DRUG PANEL cefepime <=2 susceptib le Not Available [address] [place] [address], 65950, 07/17/2024 15:01:05 07/14/20 24 07/17/2024 MICRO SCAN NEGAT MEG DRUG PANEL cefotaxime <=2 susceptib le Not Available [address] [place] [address], 94936, 07/17/2024 15:01:05 07/14/20 24 07/17/2024 MICRO SCAN NEGAT MEG DRUG PANEL ceftazidime <=1 susceptib le Not Available [address] [place] [address], 10986, 07/17/2024 15:01:05 07/14/20 24 07/17/2024 MICRO SCAN NEGAT MEG DRUG PANEL ceftriaxone <=1 susceptib le Not Available [address] [place] [address], 09598, 07/17/2024 15:01:05 07/14/20 24 07/17/2024 MICRO SCAN NEGAT MEG DRUG PANEL ciprofloxaci n <=0.25 susceptib le Not Available [address] [place] [address], 65211, 07/17/2024 15:01:05 07/14/20 24 07/17/2024 MICRO SCAN NEGAT MEG DRUG PANEL gentamicin <=2 susceptib le Not Available [address] [place] [address], 43550, 07/17/2024 15:01:05 07/14/20 24 07/17/2024 MICRO SCAN NEGAT MEG DRUG PANEL tetracycline <=4 susceptib le Not Available [address] [place] [address], 92152, 07/17/2024 15:01:05 07/14/20 24 07/17/2024 MICRO SCAN NEGAT MEG DRUG PANEL trimethoprim /sulfamethox azole <=0.5/ 9.5 susceptib le Not Available [address] [place] [address], 54067, 07/17/2024 15:01:05 07/14/20 24 07/17/2024 MICRO SCAN NEGAT MEG DRUG PANEL piperacillin /tazobactam <=8 susceptib le Not Available [address] [place] [address], 94923, 07/17/2024 15:01:05 07/14/20 24 07/17/2024 MICRO SCAN POSIT MEG DRUG PANEL ampicillin <=2 susceptib le Not Available [address] [place] [address], 49199, 07/17/2024 15:01:05 07/14/20 24 07/17/2024 MICRO SCAN POSIT MEG DRUG PANEL ciprofloxaci n <=1 susceptib le Not Available [address] [place] [address], 13870, 07/17/2024 15:01:05 07/14/20 24 07/17/2024 MICRO SCAN POSIT MEG DRUG PANEL erythromycin >4 resistant Not Available [address] [place] [address], 91004, 07/17/2024 15:01:05 07/14/20 24 07/17/2024 MICRO SCAN POSIT MEG DRUG PANEL penicillin 2 susceptib le Not Available [address] [place] [address], 77549, 07/17/2024 15:01:05 07/14/20 24 07/17/2024 MICRO SCAN POSIT MEG DRUG PANEL tetracycline >8 resistant Not Available [address] [place] [address], 50832, 07/17/2024 15:01:05 07/14/20 24 07/17/2024 MICRO SCAN POSIT MEG DRUG PANEL vancomycin 1 susceptib le Not Available [address] [place] [address], 23977, 07/17/2024 15:01:05 08/15/20 24 08/15/2024 COMPL ETE BLOOD COUNT W/ DIFF white blood count 9.2 K/mm3 4.0-11 .0 normal Not Available [address] [place] [address], 46271, 08/15/2024 14:50:03 08/15/20 24 08/15/2024 COMPL ETE BLOOD COUNT W/ DIFF red blood count 4.78 M/uL 4.20-5 .80 normal Not Available [address] [place] [address], 04509, 08/15/2024 14:50:03 08/15/20 24 08/15/2024 COMPL ETE BLOOD COUNT W/ DIFF hemoglobin 13.2 gm/dL 12.5-1 7.0 normal Not Available [address] [place] [address], 87279, 08/15/2024 14:50:03 08/15/20 24 08/15/2024 COMPL ETE BLOOD COUNT W/ DIFF hematocrit 43.3 % 37.0-5 0.0 normal Not Available [address] [place] [address], 60365, 08/15/2024 14:50:03 08/15/20 24 08/15/2024 COMPL ETE BLOOD COUNT W/ DIFF mean corpuscular volume 90.6 fL 80.0-1 00.0 normal Not Available [address] [place] [address], 09885, 08/15/2024 14:50:03 08/15/20 24 08/15/2024 COMPL ETE BLOOD COUNT W/ DIFF MCHC 30.5 % 32-37 low Not Available [address] [place] [address], 19674, 08/15/2024 14:50:03 08/15/20 24 08/15/2024 COMPL ETE BLOOD COUNT W/ DIFF red cell distribution width 14.9 % 11.5-1 6.0 normal Not Available [address] [place] [address], 01143, 08/15/2024 14:50:03 08/15/20 24 08/15/2024 COMPL ETE BLOOD COUNT W/ DIFF platelet count 146 K/uL 140-40 0 normal Not Available [address] [place] [address], 88216, 08/15/2024 14:50:03 08/15/20 24 08/15/2024 COMPL ETE BLOOD COUNT W/ DIFF mean platelet volume 11.2 fL 8.6-12 .5 normal Not Available [address] [place] [address], 56033, 08/15/2024 14:50:03 08/15/20 24 08/15/2024 COMPL ETE BLOOD COUNT W/ DIFF %nucleated RBC auto 0.0 % 0.0-0. 7 normal Not Available [address] [facility] [address] [place] [address], 95962, 08/15/2024 14:50:03 08/15/20 24 08/15/2024 COMPL ETE BLOOD COUNT W/ DIFF %neutrophils auto 78.8 % Not Available 610 No [facility] [address] [place] [address], 17516, 08/15/2024 14:50:03 08/15/20 24 08/15/2024 COMPL ETE BLOOD COUNT W/ DIFF %lymphocytes auto 11.7 % Not Available 610 No [facility] [address] [place] [address], 57677, 08/15/2024 14:50:03 08/15/20 24 08/15/2024 COMPL ETE BLOOD COUNT W/ DIFF %monocytes auto 6.3 % Not Available 610 No [facility] [address] [place] [address], 79681, 08/15/2024 14:50:03 08/15/20 24 08/15/2024 COMPL ETE BLOOD COUNT W/ DIFF %eosinophils auto 2.4 % Not Available 610 No [facility] [address] [place] [address], 74097, 08/15/2024 14:50:03 08/15/20 24 08/15/2024 COMPL ETE BLOOD COUNT W/ DIFF %basophils auto 0.3 % Not Available 610 No [facility] [address] [place] [address], 07545, 08/15/2024 14:50:03 08/15/20 24 08/15/2024 COMPL ETE BLOOD COUNT W/ DIFF %immature granulocytes auto 0.5 % Not Available 610 No [facility] [address] [place] [address], 71702, 08/15/2024 14:50:03 08/15/20 24 08/15/2024 COMPL ETE BLOOD COUNT W/ DIFF #neutrophils auto 7.26 K/uL 1.50-7 .50 normal Not Available [address] [place] [address] Drawing Station [address] [place] [address], 23918, 08/15/2024 14:50:03 08/15/20 24 08/15/2024 COMPL ETE BLOOD COUNT W/ DIFF #lymphocytes auto 1.08 K/uL 1.00-4 .50 normal Not Available [address] [place] [address], 93676, 08/15/2024 14:50:03 08/15/20 24 08/15/2024 COMPL ETE BLOOD COUNT W/ DIFF #monocytes auto 0.58 K/uL 0.00-0 .80 normal Not Available [address] [place] [address], 21988, 08/15/2024 14:50:03 08/15/20 24 08/15/2024 COMPL ETE BLOOD COUNT W/ DIFF #eosinophils auto 0.22 K/uL 0.00-0 .40 normal Not Available [address] [place] [address], 25139, 08/15/2024 14:50:03 08/15/20 24 08/15/2024 COMPL ETE BLOOD COUNT W/ DIFF #basophils auto 0.03 K/uL 0.00-0 .20 normal Not Available [address] [place] [address], 80894, 08/15/2024 14:50:03 08/15/20 24 08/15/2024 COMPL ETE BLOOD COUNT W/ DIFF #immature granulocytes auto 0.05 K/uL 0.00-0 .10 normal Not Available [address] [place] [address], 08906, 08/15/2024 14:50:03 08/15/20 24 08/15/2024 COMPR EHENS MEG METAB OLIC PANEL sodium 140 mEq/L 133-14 5 normal Not Available [address] [place] [address], 12090, 08/15/2024 14:50:05 08/15/20 24 08/15/2024 COMPR EHENS MEG METAB OLIC PANEL potassium 4.7 mEq/L 3.5-5. 1 normal Not Available [address] [place] [address] Draw[address] [place] [address], 50196, 08/15/2024 14:50:05 08/15/20 24 08/15/2024 COMPR EHENS MEG METAB OLIC PANEL chloride 105 mEq/L 98-112 normal Pleas e note new refer ence range . Not Available [address] [place] [address] Draw[facility] [address] [place] [address], 06446, 08/15/2024 14:50:05 08/15/20 24 08/15/2024 COMPR EHENS MEG METAB OLIC PANEL carbon dioxide 27 mEq/L 22-31 normal Not Available 610 [facility] Station [address] [place] [address], 79092, 08/15/2024 14:50:05 08/15/20 24 08/15/2024 COMPR EHENS MEG METAB OLIC PANEL anion gap 8 mEq/L 5-15 normal Not Available [address] [place] [address] Drawing [address] [place] [address], 87960, 08/15/2024 14:50:05 08/15/20 24 08/15/2024 COMPR EHENS MEG METAB OLIC PANEL blood urea nitrogen (BUN) 19 mg/dL 8-26 normal Not Available [address] [place] [address] Draw[address] [place] [address], 24118, 08/15/2024 14:50:05 08/15/20 24 08/15/2024 COMPR EHENS MEG METAB OLIC PANEL creatinine 1.31 mg/dL 0.70-1 .18 high Not Available [address] [place] [address], 11956, 08/15/2024 14:50:05 08/15/20 24 08/15/2024 COMPR EHENS [...] G5 (kidn ey failu re). Not Available [address] [place] [address], 74397, 08/15/2024 14:50:05 08/15/2008/15/2024 COMPR EHENS MEG METAB OLIC PANEL glucose 167 mg/dL 70-100 high Fasti ng Refer ence Inter sam: 70-10 0mg/d L Non-f astin g Refer ence Inter sam: 70-14 0mg/d L Not Available [address] [place] [address], 65139, 08/15/2024 14:50:05 08/15/20 24 08/15/2024 COMPR EHENS MEG METAB OLIC PANEL calcium 8.8 mg/dL 8.4-10 .4 normal Not Available [address] [place] [address], 05885, 08/15/2024 14:50:05 08/15/20 24 08/15/2024 COMPR EHENS MEG METAB OLIC PANEL bilirubin total 0.5 mg/dL 0.2-1. 2 normal Not Available [address] [place] [address], 00345, 08/15/2024 14:50:05 08/15/20 24 08/15/2024 COMPR EHENS MEG METAB OLIC PANEL aspartate amino transferase 13 IU/L 5-34 normal Not Available [address] [place] [address], 74776, 08/15/2024 14:50:05 08/15/20 24 08/15/2024 COMPR EHENS MEG METAB OLIC PANEL alanine aminotransfe rase 12 IU/L 0-55 normal Not Available [address] [place] [address], 27824, 08/15/2024 14:50:05 08/15/20 24 08/15/2024 COMPR EHENS MEG METAB OLIC PANEL total protein 7.4 g/dL 5.8-8. 1 normal Not Available [address] [place] [address], 94187, 08/15/2024 14:50:05 08/15/20 24 08/15/2024 COMPR EHENS MEG METAB OLIC PANEL albumin 3.0 g/dL 2.8-5. 4 normal Not Available [address] [place] [address], 07350, 08/15/2024 14:50:05 08/15/20 24 08/15/2024 COMPR EHENS MEG METAB OLIC PANEL alkaline phosphatase 68 IU/L 40-150 normal Not Available [address] [place] [address], 24476, 08/15/2024 14:50:05 08/15/20 24 08/15/2024 LIPID PANEL triglyceride s 94 mg/dL normal Haydee l <=150 Haydee l 150-1 99 Borde rline High 200-4 99 High >=500 Very High Not Available [address] [place] [address], 84662, 08/15/2024 14:50:06 08/15/20 24 08/15/2024 LIPID PANEL cholesterol 154 mg/dL normal Maureen able <200 Maureen able 200-2 39 Borde rline High >=240 High Not Available [address] [place] [address], 94191, 08/15/2024 14:50:06 08/15/20 24 08/15/2024 LIPID PANEL LDL cholesterol calculated 100 mg/dL normal Near Optim al <100 Optim al 100-1 29 Near optim al 130-1 59 Borde rline High 160-1 89 High >=190 Very High Not Available [address] [place] [address], 17646, 08/15/2024 14:50:06 08/15/20 24 08/15/2024 LIPID PANEL HDL cholesterol 35 mg/dL low <40 Low >=60 Optim al Not Available [address] [place] [address], 26148, 08/15/2024 14:50:06 08/15/20 24 08/21/2024 LUPUS ANTIC OAGUL ANT EVAL W/RFL PTT-la (lupus sensitive) 43 sec <=40 abnormal Not Available [address] [place] [address], 07685, 08/21/2024 12:29:38 08/15/20 24 08/21/2024 LUPUS ANTIC OAGUL ANT EVAL W/RFL hexagonal phase confirmation Weak Positi ve negati ve abnormal Not Available [address] [place] [address], 76965, 08/21/2024 12:29:38 08/15/20 24 08/21/2024 LUPUS ANTIC OAGUL ANT EVAL W/RFL la thrombin clotting time 20 sec 13-19 abnormal THIS TEST WAS PERFO RMED AT: [facility] [address] [place] FLORINDA ISABEL MD,P HD Not Available [address] [place] [address], 42401, 08/21/2024 12:29:38 08/15/20 24 08/21/2024 LUPUS ANTIC OAGUL ANT EVAL W/RFL dilute segun's viper venom 72 sec <=45 abnormal Not Available [address] [place] [address] [place], [address], 08/21/2024 12:29:38 08/15/2008/21/2024 LUPUS ANTIC OAGUL ANT EVAL W/RFL drvvt confirmation Negati ve negati ve THIS TEST WAS PERFO RMED AT: [facility] [place] [address] [facility] [place], [place] PATRI LACIE ISABEL MD,P HD Not Available [address] [place] [address] Drawing [address] [place] [address], 62028, 08/21/2024 12:29:38 08/15/2008/21/2024 LUPUS ANTIC OAGUL ANT [...] follo wing test resul ts. Not Available [address] [place] [address] Draw[address] [place] [address], 39774, 08/21/2024 12:29:38 09/16/20 24 09/22/2024 LUPUS ANTIC OAGUL ANT EVAL W/RFL PTT-la (lupus sensitive) 31 sec <=40 Not Available [address] [place] [address] Draw[address] [place] [address], 34771, 09/22/2024 23:44:29 09/16/20 24 09/22/2024 LUPUS ANTIC OAGUL ANT EVAL W/RFL dilute segun's viper venom 45 sec <=45 THIS TEST WAS PERFO RMED AT: [facility] [id number] [place] [address] PATRI LACIE ISABEL MD,P HD Not Available [address] [place] [address] Draw[address] [place] [address], 57066, 09/22/2024 23:44:29 09/16/2009/22/2024 LUPUS ANTIC OAGUL ANT [...] follo wing test resul ts. Not Available [address] [place] [address] Draw[address] [place] [address], 27977, 09/22/2024 23:44:29 11/18/20 24 11/18/2024 COMPR EHENS MEG METAB OLIC PANEL sodium 140 mEq/L 133-14 5 normal Not Available [address] [place] [address] Draw[address] [place] [address], 70026, 11/18/2024 14:14:07 11/18/20 24 11/18/2024 COMPR EHENS MEG METAB OLIC PANEL potassium 4.4 mEq/L 3.5-5. 1 normal Not Available [address] [place] [address] Draw[address] [place] [address], 36805, 11/18/2024 14:14:07 11/18/20 24 11/18/2024 COMPR EHENS MEG METAB OLIC PANEL chloride 105 mEq/L 98-112 normal Not Available [address] [place] [address] Draw[address] [place] [address], 65748, 11/18/2024 14:14:07 11/18/20 24 11/18/2024 COMPR EHENS MEG METAB OLIC PANEL carbon dioxide 26 mEq/L 22-31 normal Not Available 610 [facility] Drawing Station [address] [place] [address], 23351, 11/18/2024 14:14:07 11/18/20 24 11/18/2024 COMPR EHENS MEG METAB OLIC PANEL anion gap 9 mEq/L 5-15 normal Not Available 610 [facility] Station [address] [place] [address], 13157, 11/18/2024 14:14:07 11/18/20 24 11/18/2024 COMPR EHENS MEG METAB OLIC PANEL blood urea nitrogen (BUN) 14 mg/dL 8-26 normal Not Available 610 [facility] Draw[facility] [address] [place] [address], 32335, 11/18/2024 14:14:07 11/18/20 24 11/18/2024 COMPR EHENS MEG METAB OLIC PANEL creatinine 1.06 mg/dL 0.70-1 .18 normal Not Available [address] [place] [address], 99863, 11/18/2024 14:14:07 11/18/20 24 11/18/2024 COMPR EHENS [...] G5 (kidn ey failu re). Not Available [address] [place] [address], 34963, 11/18/2024 14:14:07 11/18/20 24 11/18/2024 COMPR EHENS MEG METAB OLIC PANEL glucose 118 mg/dL 70-100 high Fasti ng Refer ence Inter sam: 70-10 0mg/d L Non-f astin g Refer ence Inter sam: 70-14 0mg/d L Not Available [address] [place] [address], 67365, 11/18/2024 14:14:07 11/18/20 24 11/18/2024 COMPR EHENS MEG METAB OLIC PANEL calcium 8.8 mg/dL 8.4-10 .4 normal Not Available [address] [place] [address], 45552, 11/18/2024 14:14:07 11/18/20 24 11/18/2024 COMPR EHENS MEG METAB OLIC PANEL bilirubin total 0.4 mg/dL 0.3-1. 2 normal Pleas e note new refer ence range . Not Available [address] [place] [address], 42862, 11/18/2024 14:14:07 11/18/20 24 11/18/2024 COMPR EHENS MEG METAB OLIC PANEL aspartate amino transferase 19 IU/L 11-34 normal Pleas e note new refer ence range . Not Available [address] [place] [address] [place] [address], 36608, 11/18/2024 14:14:07 11/18/20 24 11/18/2024 COMPR EHENS MEG METAB OLIC PANEL alanine aminotransfe rase 15 IU/L <45 Pleas e note new refer ence range . Not Available [address] [place] [address], 22701, 11/18/2024 14:14:07 11/18/20 24 11/18/2024 COMPR EHENS MEG METAB OLIC PANEL total protein 6.9 g/dL 5.8-8. 1 normal Not Available [address] [place] [address], 81255, 11/18/2024 14:14:07 11/18/20 24 11/18/2024 COMPR EHENS MEG METAB OLIC PANEL albumin 3.2 g/dL 2.5-5. 0 normal Pleas e note new refer ence range . Not Available [address] [place] [address], 79780, 11/18/2024 14:14:07 11/18/20 24 11/18/2024 COMPR EHENS MEG METAB OLIC PANEL alkaline phosphatase 77 IU/L 40-150 normal Not Available [address] [place] [address], 05395, 11/18/2024 14:14:07 11/18/20 24 11/18/2024 HEMOG LOBIN A1C hemoglobin A1C 6.2 % 4.4-6. 3 normal Metho dolog y jordan e to enzym atic HbA1c metho d. Refer ence range s and resul ts sania rable to previ ous metho d. Not Available [address] [place] [address], 13109, 11/18/2024 14:21:49 11/18/20 24 11/18/2024 PSA SCREE N PSA screen 0.97 NG/mL 0-4 normal This test was perfo rmed using the Beckm an Coult er Acces s Chemi lumin escen t metho d. Value s obtai ruchi from diffe rent assay metho ds canno t be used inter jordan eabrandiey . Level s, regar dless of value , shoul d not be inter prete d as absol marshall evide nce of the prese nce or absen ce of disea se. This test shoul d be inter prete d withi n the total clini shar prese ntati on of the patie nt. Not Available [address] [facility] [address] [place], [address], 11/18/2024 15:10:52 06/23/20 25 06/22/2025 herminio s mappi ng, lower extre mity, limit ed No observ ation record ed. [address] [place], [address], 06/27/2025 17:22:56 09/06/2009/06/2025 US, jennifer x, herminio s, lower extre mity, unila teral No observ ation record ed. [address], [address], 09/06/2025 13:40:55 09/07/2008/30/2025 scler other apy (PROC ) No observ ation record ed. [address], [address], 09/09/2025 14:28:06 09/12/2009/12/2025 herminio s mappi ng, lower extre mity No observ ation record ed. [email or web address] Not Available 2024 17:37:41 09/19/2009/19/2025 imagi ng/di agnos tic resul t No observ ation record ed. [email or web address] Not Available 2024 14:08:55 09/19/20 25 09/19/2025 imagi ng/di agnos tic resul t No observ ation record ed. [address], [address], 09/20/2025 14:08:55 09/21/2008/30/2025 imagi ng/di agnos tic resul t No observ ation record ed. [address], 60260, 09/26/2025 17:29:14 09/21/2008/30/2025 imagi ng/di agnos tic resul t No observ ation record ed. [address], 270[address], 09/26/2025 17:29:15 09/21/2008/30/2025 imagi ng/di agnos tic resul t No observ ation record ed. [address], [address], 09/26/2025 17:29:15 10/04/2010/04/2025 imagi ng/di agnos tic resul t No observ ation record ed. [address], [address], 10/04/2025 14:32:13 Result Notes None recorded. Problems Name Problem SNOMED Code Status Onset Date Resolution Date Notes Provider Name and Address Organization Details Recorded Time Deep venous thrombosis 140683101 Active [address], [place], [address], [facility] 4 15:25:29 Thrombophi michele 324954858 Active 2016 plasminogi n error MD [address], [place], [address], [facility] 7 09:26:40 Venous insufficie ncy of lower limb 542066645 Active [address], [place], [address], [facility] 4 15:26:12 Lyme disease 69523131 Active 2018 Sergio Feliciano MD [address], [place], [address], [facility] 9 11:17:45 Morbid obesity 239920096 Active 2022 Sergio Feliciano MD [address], [place], [address], [facility] 4 15:25:35 Problem [...] tablet TAKE ONE TABLET BY MOUTH ON THURSDAY S AND Sundays completed Not Available Not Available [...] Address Organization Details Last Updated DateTime 4 603953. 47 g 96 % 96 % 71 /min 140/88 mm[Hg] Isi Feliciano MD 4 15:22:53 Date Recorded Body height Body mass index (BMI) Body weight Oxygen saturation Oxygen saturation in Arterial blood by Pulse oximetry Heart rate Systolic And Diastolic Provider Name and Address Organization Details Last Updated DateTime 5 182.88 cm 49.6 kg/m2 566618. 81 g 96 % 96 % 108 /min 140/88 mm[Hg] Isi Feliciano MD 5 14:10:58 Date Recorded Body weight Oxygen saturation Oxygen saturation in Arterial blood by Pulse oximetry Heart rate Systolic And Diastolic Provider Name and Address Organization Details Last Updated DateTime 4 094411. 14 g 95 % 95 % 101 /min 140/90 mm[Hg] Ernst Feliciano MD 4 15:16:51 Date Recorded Body weight Body mass index (BMI) Body height Oxygen saturation Oxygen saturation in Arterial blood by Pulse oximetry Heart rate Systolic And Diastolic Provider Name and Address Organization Details Last Updated DateTime 4 948277. 77 g 50.3 kg/m2 182.88 cm 93 % 93 % 72 /min 128/88 mm[Hg] Isi Feliciano MD 4 14:30:02 Social History Question Answer Notes LastModified by [employer] Details LastModified Time Tobacco Smoking Status Never Smoker Not Available [facility] 10/02/2020 03:48:01 Marital Status [id number] Informatio n not available 10/31/2018 What Was The Date Of Your Most Recent Tobacco Screening? 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 Family History Nothing Reported. Medical History No medical history recorded. Immunizations Vaccine Type Date Status Note Provider Nam e and Address Organization Details Recorded Time influenza, unspecified formulation 4 completed Isi Kolb DREW osorio MD 09/20/2024 16:16:05 Influenza, split virus, quadrivalent, preservative 7 completed Not Available [facility] 12/31/2019 02:20:29 Tdap 0 completed anat DREW valdez MD 04/19/2020 11:56:10 SARS-COV-2 (COVID-19) vaccine, UNSPECIFIED [address], [place], [address], DREW Feliciano MD 04/22/2021 12:20:38 Influenza, split virus, quadrivalent, preservative [address], [place], [address], DREW Feliciano MD 08/28/2021 15:25:32 Tdap 4 completed Ernst Eubanks DREW osorio MD 07/13/2024 15:42:52 Past Encounters Encounter ID Performer Location Encounter Start Date Encounter Closed Date Diagnosis/Indication Diagnosis SNOMED-CT Code Diagnosis ICD10 Code Diagnosis IMO Codes Diagnosis Note [id number] MD sergio Barry md [address] [place] [address] 07/23/2017 08:52:53 07/23/2017 09:56:22 Adult health examination 002553988 Z00.01 Diet exercise and weight loss discussed. Immunizati ons up-to-date . Will arrange for [employer] guard for colon cancer screening. Deep venou s thrombosis of lower extremity [id number] I82.409 Continue present warfarin update PT/INR. Venous ins ufficiency of lower limb [id number] I87.2 Monitor skin integrity discussed elevation and local care. [id number] MD sergio Barry md [address] [place] [address] 09/10/2017 09:33:26 09/10/2017 09:59:37 [id number] MD sergio Barry md [address] [place] [address] 02/04/2018 09:50:22 02/04/2018 12:45:28 Thrombophilia [id number] D68.59 Will continue on warfarin life long due to thrombophi michele. Lab slip for INR given as well as CBC. Continue with monthly checks. Deep venou s thrombosis of lower extremity 028731985 I82.409 No signs of reoccurren ce. Does have postphlebi tic syndrome. Venous ins ufficiency of lower limb 472148835 I87.2 Now complying with compressio n stockings. Continue efforts at weight loss and elevate legs when needed. [id number] MD sergio Barry md [address] [place] [address] 10/27/2018 13:37:49 10/27/2018 15:23:08 Injury of quadriceps muscle 022726691 S76.102A Patient is medically cleared for upcoming repair of his quadriceps muscle Recurrent deep vein thrombosis 834267573 I82.509 The patient has received chronic warfarin therapy. His warfarin is on hold and he is receiving bridging with Lovenox. [id number] MD sergio Barry md [address] [place] [address] 01/13/2019 08:48:54 01/13/2019 09:53:29 Adult health examination 637167554 Z00.01 He declines colon cancer screening. Now that he is retired and recovering from knee surgery he is working on diet for weight loss. Immunizati ons are up-to-date . Check inr warfarin therapy. 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 could have been otherwise asymptomat ic shingles but he had no papular vesicular lesions consider tick bite or Lyme check Lyme titer Recurrent deep vein thrombosis 631194250 I82.509 Check PT/INR now and monthly no signs of recurrence or bleeding [id number] MD sergio Barry md [address] [place] [address] 09/30/2019 10:53:28 09/30/2019 11:46:50 Lyme disease 89804868 A69.20 Doing well no sequela I of infection never really was symptomati c Deep venou s thrombosis 153543817 I82.409 No signs of recurrence continues warfarin 5 mg Thursday to Thursday 6 mg Thursday update PT/INR in a month [id number] MD sergio Barry md pc [address] [place] [address] 12/20/2019 09:25:18 12/20/2019 09:57:24 Deep venous thrombosis 722642760 I82.409 on warfarin and inr theraputic , complies with medication . Enlargement of neck 2983 07589 M95.3 Sleep apnea sleep apnea screening negative no signs or symptoms of Venous ins ufficiency of lower limb 260347256 I87.2 No signs of ulceration or phlebitis [id number] MD sergio Barry md pc [address] [place] [address] 04/19/2020 10:53:28 04/19/2020 11:32:12 Adult health examination 649362794 Z00.01 He declines colon cancer screening. Now that he is retired working on diet for weight loss. Tdap given, Check inr warfarin therapy. Update lipids PSA follow-up 6 months [id number] MD sergio Barry md [address] [place] [address] 10/16/2020 11:04:21 10/16/2020 14:37:17 Deep venous thrombosis 081663809 I82.409 INR is therapeuti c clinically stable no excessive bleeding for refills on warfarin called in today also refill of sildenafil for erectile dysfunctio n Adult [facility] th examination 605065916 Z00.01 He declines colon cancer screening. Now that he is retired working on diet for weight loss. Tdap given, Check inr warfarin therapy. Update lipids PSA follow-up 6 months [id number] MD sergio Barry md [address] [place] [address] 04/22/2021 10:58:23 04/22/2021 11:48:00 Adult health examination 620964516 Z00.01 He declines colon cancer screening. Diet exercise and weight loss discussed blood pressure reviewed and satisfacto ry lipids reviewed and satisfacto ry he has had his Covid vaccine follow-up 6 months [id number] MD sergio Barry md [address] [place] [address] 08/28/2021 15:16:56 08/28/2021 15:21:54 Needs influenza immunization 254548931 Z28.3 [id number] MIRIAN Navarro md [address] [place] [address] 04/13/2023 09:18:14 04/13/2023 10:18:07 Chronic cough 83808803 R05.3 Venous ins ufficiency of lower limb 503413685 I87.2 Thrombophilia 809501619 D68.59 Hyperglycemia 17230813 R 73.9 [id number] MD sergio Barry md [address] [place] [address] 02/22/2024 14:51:59 02/22/2024 15:40:52 Deep venous thrombosis 325082498 I82.409 Today will be his last dose of warfarin. Tomorrow he will begin Xarelto 20 mg a day for full anticoagul ation. Follow-up in 6 months. At that point check chemistry CBC and lupus anticoagul ant consider decreasing dose to 10 mg a day. [id number] MIRIAN Navarro md [address] [place] [address] 07/13/2024 14:59:49 07/13/2024 15:47:08 Open wound of right lower leg [id number] 8089990 S81.801A Venous ins ufficiency of lower limb 467422857 I87.2 Morbid obesity 917299080 E66.01 [id number] MD sergio Barry md [address] [place] [address] 09/21/2024 13:21:35 09/21/2024 13:22:51 [id number] MD sergio Barry md [address] [place] [address] 11/10/2024 13:59:43 11/10/2024 15:03:23 Adult health examination 220699674 Z00.01 Diet exercise and weight loss discussed lipids reviewed and satisfacto ry. For hyperglyce evelin check fasting A1c and glucose now that he stopped drinking soda. Continue efforts at weight loss. 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 MD [address], [place], [address], [facility] - Sergio RAMESH 02/22/2024 15:52:46 07/13/2024 text/html Comes in today [...] 2 weeks ago. He has been using [id number] antibiotic ointment in the interim and trying to keep it wrapped. Nonetheless he has also been using his compression stocking. He denies any fever chills shortness of breath chest pain or significant pain in the leg. He states he does have a known high pain tolerance. MD [address], [place], [address], [place] MD 07/14/2024 17:46:36 11/10/2024 text/html [...] consumption. 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 Recently he presented complaining of severe toothache and right-sided facial swelling. He was placed on amoxicillin and is feeling better. He is scheduled for vascular testing to rule out arterial insufficiency. MD [address], [place], [address], [place] Fel[place] MD 04/11/2025 14:18:16
== END 2025-10-04 12:39 | disposition home or self-care (01) ==
LOC: HO.US 12:38
PROVIDERS: PCP Family Medicine; Visit Provider Student in an Organized Health Care Education/Training Program
DX: I87.2 Venous insufficiency (chronic) (peripheral) (principal)
CPT/HCPCS: 93971

== ENCOUNTER → 2025-10-04 13:46 | Outpatient (BNV) | payer BC, SELFPAY | PROVIDERS: PCP Family Medicine; Visit Provider Radiology Diagnostic Radiology | DX: I87.2 Venous insufficiency (chronic) (peripheral) (principal) | CPT/HCPCS: 93971 ==